=== PATIENT | male | born 1945 | race Caucasian/White ===

== ENCOUNTER → 2016-04-12 | Outpatient (CLI) | payer MEDICARE, OTHER ==
--- NOTE | 2016-04-12 08:17 | CT ---
EXAMINATION TYPE: CT chest w con DATE OF EXAM: 04/12/2016 8:01 AM COMPARISON: NONE HISTORY: abnormal CXR CT DLP: 700.9 mGycm Automated exposure control for dose reduction was used. CONTRAST: CT scan of the chest is performed with IV Contrast, patient injected with 100 mL of Omnipaque 300. FINDINGS: LUNGS: 3 mm pulmonary nodules seen within the superior segment right lower lobe image 34 of 66. Addit ional smaller 4 mm nodule left lower lobe posteriorly image 48 of 66 as well as 3 mm subpleural nodul e same image. No additional nodules seen. Left basilar parenchymal scarring and mild bronchiectasis. The remainder of the lungs are clear. MEDIASTINUM: There are no greater than 1 cm hilar or mediastina l lymph nodes. No pericardial effusion is seen. Thoracic aorta is of normal caliber. The heart is not enlarged. UPPER ABDOMEN: No significant abnormality appreciated. OTHER: No additional significant abnormality is seen. IMPRESSION: 1. Nonspecific pulmonary nodularity. Follow-up study in 6 months. 2. correlate for esophagitis. 3. Left basilar scarring and mild bronchiectasis.
== END | disposition home or self-care (01) ==
LOC: RADCTMAIN 07:14
PROVIDERS: ATTEND Family Medicine
DX: J47.9 Bronchiectasis, uncomplicated (principal); J98.4 Other disorders of lung
CPT/HCPCS: 71260; Q9967

== ENCOUNTER → 2017-03-18 | Outpatient (CLI) | payer MEDICARE, OTHER ==
--- NOTE | 2017-03-18 12:27 | CT ---
EXAMINATION TYPE: CT chest wo con DATE OF EXAM: 03/18/2017 COMPARISON: NONE HISTORY: Patient complains of some difficulty breathing. CT DLP: 1401.8 mGycm, Automated exposure control for dose reduction was used. CONTRAST: None TECHNIQUE: Axial images were obtained at 1 mm thick sections at 10 mm intervals. This will limit po rtions of the examination which may not be visualized within the owson-[id number]-dbhr. Images were obtained in the prone and supine views. FINDINGS: Portion of the thyroid visualized is normal. No suspicious lung nodules or focal infiltrat es are present. Some bronchiectasis is in the left lower lobe. Some pleural thickening along the major fissure is pre sent at the right lung base. Series 5 image 23. There is a large lymph node in the pretracheal space with a large fatty hilum. This is a transverse dimension 1.4 cm which is enlarged by CT criteria. The ascending aorta diameter at the level of the m ain pulmonary artery is 4.4 cm. The main pulmonary artery diameter at the bifurcation is 3.3 cm. Cor onary artery calcification is present. Limited CT sections are obtained through the upper abdomen. Abdomen is essentially unremarkable. IMPRESSIONS: 1. Enlarged lymph node with a large fatty hilum within the pretracheal space measuring 1.4 cm. 2. Bronchiectasis medial left lower lobe. 3. Ascending thoracic aortic aneurysm.
== END | disposition home or self-care (01) ==
LOC: RADCTMAIN 08:34
PROVIDERS: ATTEND Internal Medicine Critical Care Medicine
DX: J47.9 Bronchiectasis, uncomplicated (principal); R59.0 Localized enlarged lymph nodes; I71.2 Thoracic aortic aneurysm, without rupture
CPT/HCPCS: 71250

== ENCOUNTER 2018-07-05 12:07 | Emergency (ER) | payer MEDICARE, OTHER ==
[2018-07-05] MEDS ORDERED: SODIUM CHLORIDE 0.9% 500 ML 500 ML IV STA (13:00)
[2018-07-05 13:34] LABS: Basophils # (A) 0.1 k/uL (0-0.2); Basophils % (A) 1 %; Eosinophils # (A) 0.1 k/uL (0-0.7); Eosinophils % (A) 1 %; HGB 14.7 gm/dL (13.0-17.5); Lymphocytes # (A) 1.1 k/uL (1.0-4.8); Lymphocytes % (A) 13 %; MCH 30.1 pg (25.0-35.0); MCHC 33.3 g/dL (31.0-37.0); MCV 90.5 fL (80.0-100.0); Mean Platelet Volume 7.8; Monocytes # (A) 0.5 k/uL (0-1.0); Monocytes % (A) 5 %; Neutrophils # (A) 6.9 k/uL (1.3-7.7); Neutrophils % (A) 78 %; Platelet Count 257 k/uL (150-450); RBC 4.86 m/uL (4.30-5.90); RDW 13.8 % (11.5-15.5); WBC 8.9 k/uL (3.8-10.6)
[2018-07-05 13:44] LABS: Albumin 4.2 g/dL (3.5-5.0); Calcium 9.9 mg/dL (8.4-10.2); Potassium 4.3 mmol/L (3.5-5.1); Total Bilirubin 0.8 mg/dL (0.2-1.3); Total Protein 7.3 g/dL (6.3-8.2)
[2018-07-05 13:46] LABS: INR 0.9 (<1.2); Partial Thromboplastin Time 22.4 sec (22.0-30.0); Prothrombin Time 10.1 sec (9.0-12.0)
--- NOTE | 2018-07-05 14:14 | US ---
EXAMINATION TYPE: US venous doppler duplex LE LT DATE OF EXAM: 07/05/2018 2:08 PM COMPARISON: NONE CLINICAL HISTORY: Pain. Pain and redness left leg SIDE PERFORMED: Left TECHNIQUE: The lower extremity deep venous system is examined utilizing real time linear array sonog dimas with graded compression, doppler sonography and color-flow sonography. VESSELS IMAGED: External Iliac Vein (EIV) Common Femoral Vein Deep Femoral Vein Femoral Vein Popliteal Vein Small Saphenous Vein * Proximal Calf Veins (* superficial vessels) Left Leg: Negative for DVT Within the left groin, there is a probable lymph node visualized measuring 2.6 x 0.9 x 1.8 cm IMPRESSION: No evidence of deep venous thrombosis in the left leg.
--- NOTE | 2018-07-05 15:06 | ED ---
General Adult HPI - General Chief complaint: Extremity Problem,Nontraumatic Stated complaint: lt leg swelling Time Seen by Provider: 07/05/18 12:25 Source: patient, RN notes reviewed, old records reviewed Mode of arrival: wheelchair Limitations: physical limitation - History of Present Illness Initial comments: 73-year-old male patient with past medical history hypertension, hyperlipidemia presents to ED with 2 days of left lower extremity swelling and erythema. Patient is not diabetic. Patient reports that he did have a mild fever on Friday which resolved. Patient denies any other complaints. Patient denies any cough, chest pain, shortness of breath, abdominal pain, nausea vomiting and diarrhea. Systemic: Pt denies fatigue, myalgia, fever/chills, rash. Pt denies weakness, night sweats, weight loss. Neuro: Pt denies headache, visual disturbances, syncope or pre-syncope. HEENT: Pt denies ocular discharge or irritation, otalgia, rhinorrhea, pharyngitis or notable lymphadenopathy. Cardiopulmonary: Pt denies chest pain, SOB, heart palpitations, dyspnea on exertion. Abdominal/GI: Pt denies abdominal pain, n/v/d. : Pt denies dysuria, burning w/ urination, frequency/urgency. Denies new onset urinary or bowel incontinence. MSK: Pt denies myalgia, loss of strength or function in extremities. Neuro: Pt denies new onset weakness, paresthesias. - Related Data Previous Rx's Medication Instructions Recorded Sulfamethox-Tmp 800-160Mg [Bactrim 1 tab PO Q12HR #20 tab 07/05/18 DS 800-160 mg] Allergies Allergy/AdvReac Type Severity Reaction Status Date / Time No Known Allergies Allergy Verified 01/12/14 20:23 Review of Systems ROS Statement: Those systems with pertinent positive or pertinent negative responses have been documented in the HPI. ROS Other: All systems not noted in ROS Statement are negative. Past Medical History Past Medical History: Hyperlipidemia History of Any Multi-Drug Resistant Organisms: None Reported Additional Past Surgical History / Comment(s): hemorrhoidectomy Past Psychological History: No Psychological Hx Reported Smoking Status: Former smoker Past Alcohol Use History: None Reported Past Drug Use History: None Reported General Exam - General Exam Comments Initial Comments: Constitutional: NAD, AOX3, Pt has pleasant affect. HEENT: NC/AT, trachea midline, neck supple, no lymphadenopathy. Posterior pharynx non erythematous, without exudates. External ears appear normal, without discharge. Mucous membranes moist. Eyes PERRLA, EOM intact. There is no scleral icterus. No pallor noted. Cardiopulmonary: RRR, no murmurs, rubs or gallops, no JVD noted. Lungs CTAB in anterior and posterior loja. No peripheral edema. Abdominal exam: Abdomen soft and non-distended. Abdomen non-tender to palpation in all 4 quadrants. Bowel sounds active in LLQ. No hepatosplenomegaly. No ecchymosis Neuro: CN II-XII grossly intact. No nuchal rigidity. MSK: Cellulitic changes in left lower extremity noted. Mild erythema on anterior and posterior aspect of left lower extremity. Posterior left lower extremity mildly tender to palpation. RLE nontender to palpation. Homans sign negative bilaterally. Posterior tibialis and radial pulse +2 bilaterally. Sensation intact in upper and lower extremities. Full active ROM in upper and lower extremities, 5/5 stregnth. Limitations: physical limitation Course Vital Signs 07/05/18 12:19 Temperature 98.9 F Pulse Rate 81 Respiratory 18 Rate Blood Pressure 114/68 O2 Sat by Pulse 96 Oximetry Medical Decision Making - Medical Decision Making 73-year-old male patient with past medical history hypertension, hyperlipidemia presents to ED with 2 days of left lower extremity swelling and erythema. Patient is not diabetic. Patient reports that he did have a mild fever on Friday which resolved. Patient denies any other complaints. Patient denies any cough, chest pain, shortness of breath, abdominal pain, nausea vomiting and diarrhea. Pt VSS, afebrile. Physical exam displayed: Cellulitic changes in left lower extremity noted. Mild erythema on anterior and posterior aspect of left lower extremity. Posterior left lower extremity mildly tender to palpation. RLE nontender to palpation. Homans sign negative bilaterally. Posterior tibialis and radial pulse +2 bilaterally. Laboratory investigations revealed non-impressive CBC, CMP, coagulation studies. Lactic acid within normal limits. The flexion and ultrasound revealed no evidence for deep venous thrombosis. Lymph node with in left groin. Patient diagnosed with cellulitis. Patient administered 1 g Rocephin ED. Patient discharged with Bactrim. Patient discharged with close outpatient follow-up with his primary care provider tomorrow. Pt will return to ER if condition worsens in anyway. Case discussed and seen by Dr Melchor. - Lab Data Result diagrams: 07/05/18 13:18 07/05/18 13:18 Lab Results 07/05/18 07/05/18 07/05/18 Range/Units 13:18 13:18 13:18 WBC 8.9 (3.8-10.6) k/uL RBC 4.86 (4.30-5.90) m/uL Hgb 14.7 (13.0-17.5) gm/dL Hct 44.0 (39.0-53.0) % MCV 90.5 (80.0-100.0) fL MCH 30.1 (25.0-35.0) pg MCHC 33.3 (31.0-37.0) g/dL RDW 13.8 (11.5-15.5) % Plt Count 257 (150-450) k/uL Neutrophils % 78 % Lymphocytes % 13 % Monocytes % 5 % Eosinophils % 1 % Basophils % 1 % Neutrophils # 6.9 (1.3-7.7) k/uL Lymphocytes # 1.1 (1.0-4.8) k/uL Monocytes # 0.5 (0-1.0) k/uL Eosinophils # 0.1 (0-0.7) k/uL Basophils # 0.1 (0-0.2) k/uL PT (9.0-12.0) sec INR (<1.2) APTT (22.0-30.0) sec Sodium 140 (137-145) mmol/L Potassium 4.3 (3.5-5.1) mmol/L Chloride 105 (98-107) mmol/L Carbon Dioxide 24 (22-30) mmol/L Anion Gap 11 mmol/L BUN 18 (9-20) mg/dL Creatinine 0.99 (0.66-1.25) mg/dL Est GFR (CKD-EPI)AfAm 86 (>60 ml/min/1.73 sqM) Est GFR (CKD-EPI)NonAf 75 (>60 ml/min/1.73 sqM) Glucose 116 H (74-99) mg/dL Plasma Lactic Acid Jace 1.6 (0.7-2.0) mmol/L Calcium 9.9 (8.4-10.2) mg/dL Total Bilirubin 0.8 (0.2-1.3) mg/dL AST 24 (17-59) U/L ALT 38 (21-72) U/L Alkaline Phosphatase 77 (38-126) U/L Total Protein 7.3 (6.3-8.2) g/dL Albumin 4.2 (3.5-5.0) g/dL 07/05/18 Range/Units 13:18 WBC (3.8-10.6) k/uL RBC (4.30-5.90) m/uL Hgb (13.0-17.5) gm/dL Hct (39.0-53.0) % MCV (80.0-100.0) fL MCH (25.0-35.0) pg MCHC (31.0-37.0) g/dL RDW (11.5-15.5) % Plt Count (150-450) k/uL Neutrophils % % Lymphocytes % % Monocytes % % Eosinophils % % Basophils % % Neutrophils # (1.3-7.7) k/uL Lymphocytes # (1.0-4.8) k/uL Monocytes # (0-1.0) k/uL Eosinophils # (0-0.7) k/uL Basophils # (0-0.2) k/uL PT 10.1 (9.0-12.0) sec INR 0.9 (<1.2) APTT 22.4 (22.0-30.0) sec Sodium (137-145) mmol/L Potassium (3.5-5.1) mmol/L Chloride (98-107) mmol/L Carbon Dioxide (22-30) mmol/L Anion Gap mmol/L BUN (9-20) mg/dL Creatinine (0.66-1.25) mg/dL Est GFR (CKD-EPI)AfAm (>60 ml/min/1.73 sqM) Est GFR (CKD-EPI)NonAf (>60 ml/min/1.73 sqM) Glucose (74-99) mg/dL Plasma Lactic Acid Jace (0.7-2.0) mmol/L Calcium (8.4-10.2) mg/dL Total Bilirubin (0.2-1.3) mg/dL AST (17-59) U/L ALT (21-72) U/L Alkaline Phosphatase (38-126) U/L Total Protein (6.3-8.2) g/dL Albumin (3.5-5.0) g/dL Disposition Clinical Impression: Cellulitis Disposition: HOME SELF-CARE Condition: Stable Instructions (If sedation given, give patient instructions): Cellulitis (ED) Additional Instructions: Patient to adhere to previously discussed treatment plan and will take medication(s) as directed. Patient to follow up with PCP in 1-2 days. Patient to return to ED if symptoms do not improve. Please follow-up with primary care provider tomorrow. Please return to ER if conditions do not improve or worsen. Prescriptions: Sulfamethox-Tmp 800-160Mg [Bactrim DS 800-160 mg] 1 tab PO Q12HR #20 tab Is patient prescribed a controlled substance at d/c from ED?: No Referrals: Jovanny Lucas MD [Primary Care Provider] - 1-2 days
[2018-07-05 15:21] LABS: Appearance,Urine Clear (Clear); Bilirubin,Urine Negative (Negative); Blood,Urine Negative (Negative); Color,Urine Yellow; Glucose,Urine (UA) Negative (Negative); Ketones,Urine Negative (Negative); Leukocyte Esterase,Urine Negative (Negative); Nitrite,Urine Negative (Negative); PH, Urine 5.5 (5.0-8.0); Protein,Urine Trace (Negative); Specific Gravity,Urine 1.025 (1.001-1.035)
[2018-07-05 16:03] VITALS: BP 139/73; PULSE 75; RESP 16; TEMP 98.1
== END 2018-07-05 16:02 | disposition home or self-care (01) ==
LOC: EC 12:07
DX: L03.116 Cellulitis of left lower limb (principal); Z87.891 Personal history of nicotine dependence
CPT/HCPCS: 36415; 80053; 83605; 85025; 85610; 85730; 81003; 93971; 99284; 96365; 96361; J0696

== ENCOUNTER → 2018-09-23 | Outpatient (CLI) | payer MEDICARE, OTHER ==
--- NOTE | 2018-09-23 18:35 | CONS ---
CONSULTATION DATE OF SERVICE: 09/23/2018 This patient is a 73-year-old gentleman who has been evaluated in Sleep Center for possible obstructive sleep apnea-hypopnea syndrome. HISTORY OF PRESENT ILLNESS/SLEEP-WAKE EVALUATION: Patient's usual sleep schedule is from around 11:30 p.m. until around 7 or 8 a.m. Usually no problems with falling asleep. No TV in bedroom. He sleeps on the side position with his . He has loud snoring and witnessed episodes by her of stopped breathing during sleep. He wakes up from sleep 2 times with nocturia and dry mouth, episodes of sweating. During the day he has problems with memory and irritability. [place] Sleepiness Scale is 7. He usually does not take any naps during the day. No history of hypnagogic hallucinations, sleep paralysis or cataplexy. PAST MEDICAL HISTORY: 1. Acid reflux. 2. Hyperlipidemia. 3. Possible BPH. 4. History of wheezing. Evaluation by pulmonary function test, according to the patient, was borderline, without significant changes with bronchodilators. 5. Status post fracture of left foot. 6. Trauma to the left leg. PAST SURGICAL HISTORY: Bilateral cataract surgery. MEDICATIONS: 1. Atorvastatin. 2. Fenofibrate. 3. Famotidine. 4. Trospium. 5. Tolterodine. 6. Montelukast. 7. Vitamin D, C and fish oil supplement. SOCIAL HISTORY: Negative for smoking. Alcohol consumption occasional. FAMILY HISTORY: Unknown, as the patient was adopted. REVIEW OF SYSTEMS: Multiple awakenings from sleep, snoring. PHYSICAL EXAMINATION: GENERAL: A pleasant gentleman without distress. VITAL SIGNS: BP 130/71, HR 59, RR 16, height 6 feet 4 inches, weight 289 pounds, body mass index 35.1, temperature 98.3, oxygen saturation at room air 96%. HEENT: PERRLA, EOMI. Evaluation of oropharynx showed tongue protrudes midline. Low position of soft palate. Mallampati III. Short distance between soft palate and posterior pharyngeal wall. Restriction of nasal breathing on the left side. NECK: Supple. No JVD. Thyroid is not palpable. Wide neck; 17-1/2 inches in circumference. LUNGS: Clear to percussion and to auscultation. Good air exchange. No wheezing or rhonchi. HEART: S1, S2 regular. No murmurs, gallops or rubs. ABDOMEN: Slightly obese. EXTREMITIES: Very minimal, up to 1+ ankle edema. FARM FIELD MANAGER: Awake, alert, and oriented X3. Cranial nerves 2 to 7 intact. There is no fasciculation or atrophy. noted. No focal deficits observed. IMPRESSION: 1. Loud snoring, awakenings from sleep with dry mouth, restriction of nasal breathing -- patient sleeps sometimes with open mouth -- wide neck, witnessed episodes of stopped breathing during sleep; obstructive sleep apnea-hypopnea syndrome. 2. Mild obesity; body mass index 35.1. 3. Gastroesophageal reflux disease, acid reflux. 4. Hyperlipidemia. 5. History of benign prostatic hypertrophy. 6. Status post bilateral cataract surgery. 7. Status post fracture of left foot and multiple damage to left leg in the past. PLAN: 1. Polysomnography for evaluation of patient's breathing during sleep. 2. CPAP/BiPAP titration if sleep study confirms obstructive sleep apnea-hypopnea syndrome. 3. Preferable position during sleep on the side. 4. No driving if patient feels any sleepiness. 5. I will see patient for follow up visit to explain results of testing and following plan. Thank you very much for referring this patient for consultation. Sincerely, Jacek Street MD, PhD, FAASM Diplomat of [employer] Ring Maker of [facility] [place] MMASPENL / DIONICIO: [id number] /
== END | disposition home or self-care (01) ==
LOC: SLEEP 13:55
PROVIDERS: ATTEND Internal Medicine
DX: G47.33 Obstructive sleep apnea (adult) (pediatric) (principal); E66.9 Obesity, unspecified; K21.9 Gastro-esophageal reflux disease without esophagitis; E78.5 Hyperlipidemia, unspecified; Z68.35 Body mass index [BMI] 35.0-35.9, adult; Z87.81 Personal history of (healed) traumatic fracture; Z87.448 Personal history of other diseases of urinary system; Z98.42 Cataract extraction status, left eye; Z98.41 Cataract extraction status, right eye; Z79.899 Other long term (current) drug therapy
CPT/HCPCS: 99211

== ENCOUNTER → 2018-10-22 | Outpatient (CLI) | payer OTHER ==
--- NOTE | 2018-10-22 14:27 | SFUN ---
SLEEP CENTER FOLLOW UP NOTE DATE OF SERVICE: 10/22/2018 A 73-year-old gentleman who has been followed in the Sleep Center to discuss results of full sleep study and following plan. During the night he continued to wake up several times with nocturia. I discussed results of sleep study with patient in detail. Sleep study showed mild obstructive sleep apnea-hypopnea syndrome with apnea-hypopnea index 11.3, and REM sleep 14.5 with oxygen desaturation to 84.6% heart rate in the range between 42 and 62. ENG showed 70.1 periodic limb movements per hour with 4.2 microarousals per hour. [place] Sleepiness Scale today is 7. PRESENT MEDICATIONS: Atorvastatin, fenofibrate, famotidine, , tolterodine, Montelukast, Vitamin D & C, fish oil. PHYSICAL EXAM: Patient in no distress, BP 136/84, HR 64, RR 16, height 6, 4, weight 289, body mass index 35, oxygen saturation at room air 95%. OROPHARYNX: Low position of soft palate. Mallampati 3. ABDOMEN: Slightly obese. Neck Supple, no JVD. Thyroid is not palpable. LUNGS Clear to percussion and to auscultation. Good air exchange. No wheezing or rhonchi. HEART S1, S2 regular. No murmurs, gallops, or rubs. EXTREMITIES No clubbing or cyanosis. ROUTE SALES DRIVER Awake, alert, and oriented X3. Cranial nerves 2 to 7 intact. There is no fasciculation or atrophy. noted. No focal deficits observed. IMPRESSION: 1. Mild obstructive sleep apnea-hypopnea syndrome. The patient has several awakenings from sleep with nocturia. 2. Severe periodic limb movements have been documented, but with mild amount of micro arousals. 3. Mild obesity. 4. . 5. Hyperlipidemia. 6. History of benign prostatic hypertrophy. 7. Status post bilateral cataract surgery. 8. Status post fracture of left foot and multiple limb damage to left foot and left leg in the past. PLAN: 1. CPAP titration for correction of patient respiratory abnormalities during sleep. 2. Sleep hygiene with regular time in bed for at least 8 hours. 3. I discussed with the patient possibility for treatment of periodic limb movements. I will recheck his situation with his legs after CPAP titration will be done. Amount of micro arousals related to leg movements very minimal, but leg movement significant. The patient does not have any complaints on leg movements at night. 4. No driving if feeling sleepiness. 5. Losing weight. Thank you very much for allowing me to participate in management of your patient. Sincerely, Jacek Street MD, PhD, FAASM Diplomat of [employer] Portable Pinch Riveter [facility] [place] MMODL / IJN: [id number] /
== END | disposition home or self-care (01) ==
LOC: SLEEP 13:09
PROVIDERS: ATTEND Internal Medicine
DX: G47.33 Obstructive sleep apnea (adult) (pediatric) (principal); E78.5 Hyperlipidemia, unspecified; E66.9 Obesity, unspecified; Z87.438 Personal history of other diseases of male genital organs; Z98.42 Cataract extraction status, left eye; Z98.41 Cataract extraction status, right eye; Z87.81 Personal history of (healed) traumatic fracture; Z79.899 Other long term (current) drug therapy

== ENCOUNTER → 2019-01-07 | Outpatient (CLI) | payer OTHER ==
--- NOTE | 2019-01-07 14:22 | PN ---
PROGRESS NOTE DATE OF SERVICE: 01/07/2019 A 73-year-old gentleman who has been followed in the Sleep Center for treatment of obstructive sleep apnea-hypopnea syndrome and periodic limb movements. Recently patient had sleep study which showed obstructive sleep apnea with apnea- hypopnea index 11.3. After the patient had CPAP titration, his respiration normalized. Subsequently, he was started on treatment with CPAP and today is his first visit after he received his CPAP unit. He is able to use CPAP equipment without significant problems with a full-face mask. According to his , he does not snore now after started to use his CPAP. He decreased the amount of episodes of nocturia from around 3 times down to 1 to 0 time per night. I checked his CPAP unit. CPAP pressure is 9 cm of water. Usage is every night for more than 4 hours with average usage 7.5 hours per night, mask fitting 99%. Apnea-hypopnea index 3.0, which is in normal range. Percent of periodic breathing according to the machine 4% which is acceptable. [place] Sleepiness Scale still slightly increased to 11. MEDICATIONS: Atorvastatin, fenofibrate, famotidine, fluoride, vitamin supplements. PHYSICAL EXAM: Patient in no distress. BP 134/73, HR 58, RR 16, weight 288, temp 97.6, oxygen saturation at room air 96%. OROPHARYNX: Low position of soft palate, Mallampati III. ABDOMEN: Slightly obese. NECK: Supple, no JVD. Thyroid is not palpable. LUNGS: Clear to percussion and to auscultation. Good air exchange. No wheezing or rhonchi. HEART: S1, S2 regular. No murmurs, gallops, or rubs. EXTREMITIES: No clubbing or cyanosis. PRESS TOOL MAKER: Awake, alert, and oriented X3. Cranial nerves 2 to 7 intact. There is no fasciculation or atrophy. noted. No focal deficits observed. IMPRESSION: 1. Obstructive sleep apnea-hypopnea syndrome. Patient demonstrated 100% compliance with treatment, benefitting from treatment. 2. Patient still has mild symptoms of excessive daytime sleepiness. [place] Sleepiness Scale 11. Diagnostic sleep study and titration of sleep study showed severe periodic limb movements. 3. Mild obesity. 4. Hyperlipidemia. 5. History of benign prostatic hypertrophy. 6. History of a left foot fracture. 7. History of significant arthritis of the feet. 8. History of tear of meniscus of left foot. 9. Status post bilateral cataract surgery. PLAN: 1. Patient will continue to use CPAP equipment every night for the whole night. 2. We will try Mirapex 0.125 mg 1 to 2 tablets at bedtime for periodic limb movements. 3. Losing weight. 4. Sleep hygiene with regular time in bed for 7.5 hours. 5. No driving if feeling sleepiness. Thank you very much for allowing me to participate in the management of your patient. Sincerely, Jacek Street MD, PhD, FAASM Diplomat of [employer] Food Analyst of [facility] [place] MMODL / IJN: [id number] /
== END ==
LOC: SLEEP 11:18
PROVIDERS: ATTEND Internal Medicine
DX: G47.33 Obstructive sleep apnea (adult) (pediatric) (principal); E66.9 Obesity, unspecified; E78.5 Hyperlipidemia, unspecified; N40.0 Benign prostatic hyperplasia without lower urinary tract symptoms; Z87.81 Personal history of (healed) traumatic fracture; Z87.39 Personal history of other diseases of the musculoskeletal system and connective tissue; Z98.42 Cataract extraction status, left eye; Z98.41 Cataract extraction status, right eye; Z99.89 Dependence on other enabling machines and devices; Z79.899 Other long term (current) drug therapy

== ENCOUNTER → 2019-03-22 | Outpatient (CLI) | payer MEDICARE, OTHER ==
--- NOTE | 2019-03-22 07:42 | US ---
EXAMINATION TYPE: US duplex aorta DATE OF EXAM: 03/22/2019 COMPARISON: NONE CLINICAL HISTORY: Z13.6 Screening for AAA. Screening EXAM MEASUREMENTS: Abdominal Aorta: Proximal: 2.6 x 2.4cm Mid: 3.0 x 2.3cm Distal: 3.3 x 2.8cm Bifurcation: RT: 1.4 x 1.3cm LT: 1.4 x 1.1cm Mild AAA noted distally. IMPRESSION: Abdominal aortic aneurysm of the distal abdominal aorta measuring 3.3 cm. Remainder of th e abdominal aorta demonstrates no additional area of aneurysmal dilatation.
== END | disposition home or self-care (01) ==
LOC: RADUSWWP 07:05
PROVIDERS: ATTEND Family Medicine
DX: I71.4 Abdominal aortic aneurysm, without rupture (principal)
CPT/HCPCS: 93979

== ENCOUNTER 2019-04-05 08:02 | Day surgery (SDC) | payer MEDICARE, OTHER ==
[2019-04-01 11:14] VITALS: BMI 33.2
[~2019-04-05 08:02] MED LIST: LACTATED RINGERS 1,000 ML IV SCH
[2019-04-05 08:32] VITALS: TEMP 97.8
[2019-04-05] MEDS ORDERED: LIDOCAINE 1% 20 ML VIAL (10MG/ML) FOR IV START INTRADERMA ONE (08:42)
[2019-04-05] MEDS ORDERED: MIDAZOLAM 2 MG/2 ML VIAL ONE (09:04)
[2019-04-05] MEDS ORDERED: fentaNYL (PF) 50 MCG/ML 2 ML AMP ONE (09:04)
[2019-04-05] MEDS ORDERED: PROPOFOL 10 MG/ML 20 ML VIAL IV ONE (09:04)
--- NOTE | 2019-04-05 09:29 | P.PCN ---
Date of Procedure: 04/05/19 Description of Procedure: BRIEF HISTORY: Patient is a 73-year-old male presenting for outpatient es ophagogastroduodenoscopy for evaluation of GERD. Patient takes Pepcid for symptoms of reflux. Also reports a tic on the back of his throat. No prior EGD reported. PROCEDURE PERFORMED: Esophagogastroduodenoscopy with biopsy. PREOPERATIVE DIAGNOSIS: GERD. ESTIMATED BLOOD LOSS: Minimal. IV sedation per anesthesia. PROCEDURE: After informed consent was obtained, the patient was brought into the endoscopy unit. IV sedation was administered by Anesthesia under continuous monitoring. Initially the Olympus GIF-190 video endoscope was inserted into the mouth. Esophagus intubated without any difficulty. It was gradually advanced into the stomach and duodenum and carefully examined. The bulb and the second part of the duodenum appeared normal, with biopsies taken. The scope at this time was withdrawn to the stomach, adequately insufflated with air, and upon careful examination, mucosa of the antrum, body, cardia and the fundus appeared normal, except for some mild scattered erythema in the antrum and body suggestive of mild gastritis with biopsies of the antrum and body taken. The scope was then withdrawn into the esophagus. The GE junction was located at 49 cm from the incisors and appeared normal with biopsies taken to rule out reflux esophagitis. The esophagus appeared normal. There were no erosions or ulcerations seen and the patient tolerated the procedure well. IMPRESSION: 1. Mild Gastritis antrum and body, biopsied. 2. Biopsies of the duodenum and GE junction.. RECOMMENDATIONS: The findings of this examination were discussed with the patient and his . Okay to resume diet. Okay to resume medications. Await pathology from biopsies.
[2019-04-05 09:47] VITALS: BP 115/72; PULSE 54; RESP 20
== END 2019-04-05 10:16 | disposition home or self-care (01) ==
LOC: ORWHC2ENDO 08:02
PROVIDERS: ATTEND Internal Medicine
DX: K29.50 Unspecified chronic gastritis without bleeding (principal); K21.9 Gastro-esophageal reflux disease without esophagitis; E78.5 Hyperlipidemia, unspecified; J45.909 Unspecified asthma, uncomplicated; G47.33 Obstructive sleep apnea (adult) (pediatric); Z87.891 Personal history of nicotine dependence; Z99.89 Dependence on other enabling machines and devices; Z79.899 Other long term (current) drug therapy; Z98.890 Other specified postprocedural states; Z79.891 Long term (current) use of opiate analgesic; Z98.52 Vasectomy status; Z98.49 Cataract extraction status, unspecified eye
CPT/HCPCS: 88305; 43239; J2250; J3010; J2704

== ENCOUNTER 2019-05-10 18:03 | Inpatient (IN) | payer MEDICARE, OTHER ==
[2019-05-10] MEDS ORDERED: VANCOMYCIN IV PER PHARMACY 1 EACH MISC MISCELLANE PRN (18:29)
[2019-05-10] MEDS ORDERED: ACETAMINOPHEN TAB 500 MG TAB PO STA (18:29)
[2019-05-10] MEDS: SODIUM CHLORIDE 0.9% 500 ML 500 ML IV SCH ×3 (18:36→18:56)
[2019-05-10] MEDS ORDERED: VANCOMYCIN 2,250 MG in SODIUM CHLORIDE 0.9% 500 ML 500 ML IVPB STA (18:36)
--- NOTE | 2019-05-10 18:46 | ED ---
General Adult HPI - General Chief complaint: Weakness Stated complaint: weakness Time Seen by Provider: 05/10/19 18:23 Source: patient, EMS, RN notes reviewed, old records reviewed Mode of arrival: EMS Limitations: no limitations - History of Present Illness Initial comments: 73-year-old male presenting for evaluation generalized weakness and chills. P atient states that yesterday afternoon he developed chills and Dm's. He denies significant cough or URI symptoms. Denies abdominal pain nausea or vomiting. He has a chronic left lower extremity erythema which she states is been present for at least 6 months. He has been diagnosed with cellulitis in this leg in the past. He denies dysuria or hematuria. His states he's had a mild cough. He he has been eating and drinking. - Related Data Home Medications Medication Instructions Recorded Confirmed Cholecalciferol [Vitamin D3 (25 1,000 unit PO DAILY 04/01/19 04/05/19 Mcg = 1000 Iu)] Famotidine [Pepcid] 40 mg PO DAILY 04/01/19 04/05/19 Montelukast Sodium [Singulair] 10 mg PO HS 04/01/19 04/05/19 Naproxen 500 mg PO BID PRN 04/01/19 04/05/19 [place]-3 Fatty Acids/Fish Oil [Fish 1 each PO DAILY 04/01/19 04/05/19 Oil 1,000 mg Softgel] Tolterodine [Detrol] 2 mg PO DAILY 04/01/19 04/05/19 Trospium Chloride [Sanctura] 20 mg PO DAILY 04/01/19 04/05/19 Allergies Allergy/AdvReac Type Severity Reaction Status Date / Time No Known Allergies Allergy Verified 04/05/19 08:23 Review of Systems ROS Statement: Those systems with pertinent positive or pertinent negative responses have been documented in the HPI. ROS Other: All systems not noted in ROS Statement are negative. Past Medical History Past Medical History: Hyperlipidemia, Prostate Disorder History of Any Multi-Drug Resistant Organisms: None Reported Additional Past Surgical History / Comment(s): hemorrhoidectomy, cataracts removed Past Psychological History: No Psychological Hx Reported Smoking Status: Former smoker Past Alcohol Use History: Occasional Past Drug Use History: None Reported General Exam Limitations: no limitations General appearance: alert, in no apparent distress Head exam: Present: atraumatic, normocephalic Eye exam: Present: normal appearance, PERRL ENT exam: Present: normal exam, normal oropharynx Neck exam: Present: normal inspection. Absent: tenderness, meningismus Respiratory exam: Present: normal lung sounds bilaterally, decreased breath sounds. Absent: respiratory distress, wheezes Cardiovascular Exam: Present: regular rate, normal rhythm GI/Abdominal exam: Present: soft, distended. Absent: tenderness, guarding, rebound Extremities exam: Present: pedal edema, other (Circumferential cellulitis and edema of the left lower extremity just distal to the knee.) Neurological exam: Present: alert, oriented X3, CN II-XII intact. Absent: motor sensory deficit Psychiatric exam: Present: normal affect, normal mood Skin exam: Present: warm, dry, erythema (Left lower extremity, warmth, erythema, swelling) Course Vital Signs 05/10/19 05/10/19 05/10/19 18:04 18:19 19:36 Temperature 101.4 F H 99.7 F H Pulse Rate 60 73 68 Respiratory 16 18 18 Rate Blood Pressure 84/38 103/55 101/51 O2 Sat by Pulse 93 L 93 L 92 L Oximetry EKG Findings - EKG Comments: EKG Findings:: EKG: Sinus rhythm with first-degree AV block, rate of 73, incomplete right bundle-branch block, TN interval 226, QRS duration 100, QTC 438, no ST segment elevation Procedures - Sepsis Sepsis Focused Exam #1 Time Sepsis Criteria Met: 18:07 Sepsis Focused Exam Date: 05/10/19 Sepsis Focused Exam Time: 20:19 Sepsis Focused Exam Complete: Yes Vital Signs & RN Notes Reviewed: Yes Capillary Refill: < 2 Seconds: Fingers, Toes Peripheral Pulses: Normal: Radial (R), Radial (L) Skin Color: Normal for Patient Respiratory Exam: normal lung sounds Cardiovascular Exam: regular rate, normal rhythm Medical Decision Making - Medical Decision Making 73-year-old male presenting with fever weakness. Only focal source of infection is the left lower extremity cellulitis which is erythematous, warm to the touch. Patient is febrile with leukocytosis at 13.1. He has mild lactic acidosis of 2.8. Chest x-ray is negative for focal pneumonia, he's influenza negative. Urinalysis is pending, this may be a potential source of infection but he has been unable to urinate while in the emergency department. He is initiated on broad-spectrum antibiotics including ceftriaxone and vancomycin awaiting culture results. He will be admitted to internal medicine for close monitoring, IV antibiotics treatment of left lower extremity cellulitis with se psis. - Lab Data Result diagrams: 05/10/19 18:30 05/10/19 18:30 Lab Results 05/10/19 05/10/19 05/10/19 Range/Units 18:30 18:30 18:30 WBC 13.1 H (3.8-10.6) k/uL RBC 4.32 (4.30-5.90) m/uL Hgb 12.9 L (13.0-17.5) gm/dL Hct 39.7 (39.0-53.0) % MCV 91.9 (80.0-100.0) fL MCH 29.8 (25.0-35.0) pg MCHC 32.4 (31.0-37.0) g/dL RDW 13.5 (11.5-15.5) % Plt Count 125 L (150-450) k/uL Neutrophils % 89 % Lymphocytes % 6 % Monocytes % 2 % Eosinophils % 2 % Basophils % 0 % Neutrophils # 11.7 H (1.3-7.7) k/uL Lymphocytes # 0.8 L (1.0-4.8) k/uL Monocytes # 0.3 (0-1.0) k/uL Eosinophils # 0.3 (0-0.7) k/uL Basophils # 0.1 (0-0.2) k/uL PT 13.4 H (9.0-12.0) sec INR 1.3 H (<1.2) APTT 22.4 (22.0-30.0) sec Sodium 136 L (137-145) mmol/L Potassium 4.1 (3.5-5.1) mmol/L Chloride 105 (98-107) mmol/L Carbon Dioxide 21 L (22-30) mmol/L Anion Gap 10 mmol/L BUN 31 H (9-20) mg/dL Creatinine 1.15 (0.66-1.25) mg/dL Est GFR (CKD-EPI)AfAm 73 (>60 ml/min/1.73 sqM) Est GFR (CKD-EPI)NonAf 63 (>60 ml/min/1.73 sqM) Glucose 112 H (74-99) mg/dL Plasma Lactic Acid Jace (0.7-2.0) mmol/L Calcium 8.5 (8.4-10.2) mg/dL Total Bilirubin 1.0 (0.2-1.3) mg/dL AST 33 (17-59) U/L ALT 29 (4-49) U/L Alkaline Phosphatase 46 (38-126) U/L Creatine Kinase 128 (55-170) U/L Total Protein 6.1 L (6.3-8.2) g/dL Albumin 3.3 L (3.5-5.0) g/dL Influenza Type A RNA (Not Detectd) Influenza Type B (PCR) (Not Detectd) 05/10/19 05/10/19 Range/Units 18:30 18:30 WBC (3.8-10.6) k/uL RBC (4.30-5.90) m/uL Hgb (13.0-17.5) gm/dL Hct (39.0-53.0) % MCV (80.0-100.0) fL MCH (25.0-35.0) pg MCHC (31.0-37.0) g/dL RDW (11.5-15.5) % Plt Count (150-450) k/uL Neutrophils % % Lymphocytes % % Monocytes % % Eosinophils % % Basophils % % Neutrophils # (1.3-7.7) k/uL Lymphocytes # (1.0-4.8) k/uL Monocytes # (0-1.0) k/uL Eosinophils # (0-0.7) k/uL Basophils # (0-0.2) k/uL PT (9.0-12.0) sec INR (<1.2) APTT (22.0-30.0) sec Sodium (137-145) mmol/L Potassium (3.5-5.1) mmol/L Chloride (98-107) mmol/L Carbon Dioxide (22-30) mmol/L Anion Gap mmol/L BUN (9-20) mg/dL Creatinine (0.66-1.25) mg/dL Est GFR (CKD-EPI)AfAm (>60 ml/min/1.73 sqM) Est GFR (CKD-EPI)NonAf (>60 ml/min/1.73 sqM) Glucose (74-99) mg/dL Plasma Lactic Acid Jace 2.8 H* (0.7-2.0) mmol/L Calcium (8.4-10.2) mg/dL Total Bilirubin (0.2-1.3) mg/dL AST (17-59) U/L ALT (4-49) U/L Alkaline Phosphatase (38-126) U/L Creatine Kinase (55-170) U/L Total Protein (6.3-8.2) g/dL Albumin (3.5-5.0) g/dL Influenza Type A RNA Not Detected (Not Detectd) Influenza Type B (PCR) Not Detected (Not Detectd) Critical Care Time Critical Care Time: Yes Total Critical Care Time: 35 Disposition Clinical Impression: Sepsis, Cellulitis Disposition: ADMITTED IP TO THIS HOSP Condition: Stable Is patient prescribed a controlled substance at d/c from ED?: No Referrals: Jovanny Lucas MD [Primary Care Provider] - 1-2 days Decision to Admit Reason: Admit from EC
[2019-05-10 18:51] LABS: Basophils # (A) 0.1 k/uL (0-0.2); Basophils % (A) 0 %; Eosinophils # (A) 0.3 k/uL (0-0.7); Eosinophils % (A) 2 %; HCT 39.7 % (39.0-53.0); HGB 12.9 gm/dL (13.0-17.5); Lymphocytes # (A) 0.8 k/uL (1.0-4.8); Lymphocytes % (A) 6 %; MCH 29.8 pg (25.0-35.0); MCHC 32.4 g/dL (31.0-37.0); MCV 91.9 fL (80.0-100.0); Mean Platelet Volume 7.9; Monocytes # (A) 0.3 k/uL (0-1.0); Monocytes % (A) 2 %; Neutrophils # (A) 11.7 k/uL (1.3-7.7); Neutrophils % (A) 89 %; Platelet Count 125 k/uL (150-450); RBC 4.32 m/uL (4.30-5.90); RDW 13.5 % (11.5-15.5); WBC 13.1 k/uL (3.8-10.6)
[2019-05-10 19:00] LABS: Albumin 3.3 g/dL (3.5-5.0); Calcium 8.5 mg/dL (8.4-10.2); Potassium 4.1 mmol/L (3.5-5.1); Total Protein 6.1 g/dL (6.3-8.2)
[2019-05-10 19:33] LABS: INR 1.3 (<1.2); Prothrombin Time 13.4 sec (9.0-12.0)
--- NOTE | 2019-05-10 19:38 | XR ---
EXAMINATION TYPE: XR chest 2V DATE OF EXAM: 05/10/2019 COMPARISON: NONE HISTORY: Cough and congestion TECHNIQUE: 4 views FINDINGS: There is no heart failure nor confluent pneumonic infiltrate. Costophrenic angles are clear . There are no hilar masses. Heart is borderline enlarged. Bony thorax is intact. IMPRESSION: Borderline cardiomegaly. No active cardiopulmonary disease.
[2019-05-10 19:45] LABS: Partial Thromboplastin Time 22.4 sec (22.0-30.0)
[2019-05-10] MEDS ORDERED: SODIUM CHLORIDE 0.9% 1,000 ML IV ONE (20:04)
[2019-05-10] MEDS ORDERED: NALOXONE 0.4 MG/ML 1 ML VIAL IV PRN (20:15)
[2019-05-10] MEDS ORDERED: ACETAMINOPHEN TAB 325 MG TAB PO PRN (20:15)
[2019-05-10] MEDS: SODIUM CHLORIDE 0.9% 1,000 ML IV SCH (21:02)
--- NOTE | 2019-05-10 22:35 | P.HPIM ---
History of Present Illness H&P Date: 05/10/19 Chief Complaint: bilateral leg weakness 73 year old male , with prostate disorder, and normally runs low blood pressure low 100 of systolic blood pressure patient comes in today, as since morning he noticed weakness in bilateral legs. and could not get out of the bed ended up sliding down. then noticed difficulties with walking due to weakness. he also reports chills since yesterday. he denies any other focal neuro deficits. he denies any URI symptoms denies any chest pain or trouble breathing. he denies any headache, nausea vomiting or any GI symptoms. he denies any urinary symptoms. he denies nocturia , hematuria or dysuria. patient denies any recent traveling. or sick contacts. patient reports recent cellulitis of his left leg 3 months ago, and since then his left leg has been red. he denies any pain though. in the ED he was febrile , hypotensive, blood work showed leukocytosis and lactic acidosis . patient admitted to rule out infection and was started on IVF hydration and broad spectrum ABx Review of Systems Pertinent positives as noted in HPI. All other systems were reviewed and are negative Past Medical History Past Medical History: Hyperlipidemia, Prostate Disorder History of Any Multi-Drug Resistant Organisms: None Reported Additional Past Surgical History / Comment(s): hemorrhoidectomy, cataracts removed Past Psychological History: No Psychological Hx Reported Smoking Status: Former smoker Past Alcohol Use History: Occasional Past Drug Use History: None Reported - Past Family History Mother History Unknown: Yes Family Medical History: No Reported History Additional Family Medical History / Comment(s): pt states he was adopted, parents unknown. Medications and Allergies Home Medications Medication Instructions Recorded Confirmed Type Cholecalciferol [Vitamin D3 (25 1,000 unit PO DAILY 04/01/19 05/10/19 History Mcg = 1000 Iu)] Montelukast Sodium [Singulair] 10 mg PO HS 04/01/19 05/10/19 History Naproxen 500 mg PO BID PRN 04/01/19 05/10/19 History [place]-3 Fatty Acids/Fish Oil [Fish 1 cap PO DAILY 04/01/19 05/10/19 History Oil 1,000 mg Softgel] Tolterodine [Detrol] 2 mg PO DAILY 04/01/19 05/10/19 History Trospium Chloride [Sanctura] 20 mg PO BID 04/01/19 05/10/19 History Naproxen Sodium [Aleve] 220 mg PO BID PRN 05/10/19 05/10/19 History Omeprazole [PriLOSEC] 40 mg PO DAILY 05/10/19 05/10/19 History Allergies Allergy/AdvReac Type Severity Reaction Status Date / Time No Known Allergies Allergy Verified 05/10/19 20:47 Physical Exam Vitals: Vital Signs Temp Pulse Resp BP Pulse Ox 05/10/19 20:22 99.7 F H 66 18 90/48 92 L 05/10/19 19:36 99.7 F H 68 18 101/51 92 L 05/10/19 18:19 73 18 103/55 93 L 05/10/19 18:04 101.4 F H 60 16 84/38 93 L Intake and Output 05/10/19 05/10/19 05/10/19 06:59 14:59 22:59 Other: Weight 127.006 kg Constitutional: No acute distress, conversant, pleasant, patient had strong smell of urine, however, he claimed that his pants are dirty and has not been washed for a month now. Eyes: Anicteric sclerae, moist conjunctiva, no lid-lag Pupils equal round reactive to light ENMT: NC/AT Oropharynx clear, no erythema, exudates Neck: Supple, FROM, no masses, or JVD No carotid bruits No thyromegaly Lungs: Clear to auscultation Clear to percussion Normal respiratory effort, no accessory muscle use Cardiovascular: Heart regular in rate and rhythm, No murmurs, gallops, or rubs No peripheral edema Abdominal: Soft Nontender, no guarding, rebound or rigidity Abdomen moving with respiration Normoactive bowel sounds No hepatomegaly, No splenomegaly No palpable mass No abdominal wall hernia noted groin area examined no erythema or drainage Skin: erythema no induration over the left leg , marked with pen to monitor progress, no warmth to the touch , no tenderness , otherwise. Normal temperature, tone, texture, turgor, no ulcers. Extremities: No digital cyanosis No clubbing Pedal pulses intact and symmetrical Radial pulses intact and symmetrical No calf tenderness Psychiatric: Alert and oriented to person, place and time Appropriate affect fair judgement Neuro Muscles Strength 5/5 in all 4 extremities Sensation to light touch grossly present throughout Cranial nerves II-XII grossly intact No focal sensory deficits Lymphatics: no palpable cervical or supraclavicular , or inguinal lymph nodes Results CBC & Chem 7: 05/10/19 18:30 05/10/19 18:30 Labs: Abnormal Lab Results - Last 24 Hours (Table) 05/10/19 05/10/19 05/10/19 Range/Units 18:30 18:30 18:30 WBC 13.1 H (3.8-10.6) k/uL Hgb 12.9 L (13.0-17.5) gm/dL Plt Count 125 L (150-450) k/uL Neutrophils # 11.7 H (1.3-7.7) k/uL Lymphocytes # 0.8 L (1.0-4.8) k/uL PT 13.4 H (9.0-12.0) sec INR 1.3 H (<1.2) Sodium 136 L (137-145) mmol/L Carbon Dioxide 21 L (22-30) mmol/L BUN 31 H (9-20) mg/dL Glucose 112 H (74-99) mg/dL Plasma Lactic Acid Jace (0.7-2.0) mmol/L Total Protein 6.1 L (6.3-8.2) g/dL Albumin 3.3 L (3.5-5.0) g/dL 05/10/19 Range/Units 18:30 WBC (3.8-10.6) k/uL Hgb (13.0-17.5) gm/dL Plt Count (150-450) k/uL Neutrophils # (1.3-7.7) k/uL Lymphocytes # (1.0-4.8) k/uL PT (9.0-12.0) sec INR (<1.2) Sodium (137-145) mmol/L Carbon Dioxide (22-30) mmol/L BUN (9-20) mg/dL Glucose (74-99) mg/dL Plasma Lactic Acid Jace 2.8 H* (0.7-2.0) mmol/L Total Protein (6.3-8.2) g/dL Albumin (3.5-5.0) g/dL Assessment and Plan Assessment: 73 year old male with BPH, comes in due to chills and bilateral leg weakness. admitted due to suspected sepsis of unknown undelrying infection suspected cellulitis vs UTI and hypotension, anticipated length of stay > 2 midnights Plan: sepsis due to suspected underlying cellulitis vs UTI hypotension lactic acidosis plan follow up blood culture follow up UA erythema over left leg marked to monitor progress empiric ABx with vanco symptomatic control IVF hydration follow up LA and labs BPH continue home meds CODE STATUS:full code DVT prophylaxis: heparin sc tid Discussed with: Patient, ER, RN Anticipated length of stay > than [address]: home A total of 60 minutes was spent on the care of this complex patient more than 50% of the time was spent in counseling and care coordination.
[2019-05-11] MEDS: HEPARIN SODIUM,PORCINE 5,000 UNIT/ML 1 ML VIAL SQ SCH ×4 (00:19→23:05)
[2019-05-11 05:36] LABS: Appearance,Urine Cloudy (Clear); Bacteria,Urine Rare /hpf; Bilirubin,Urine Negative (Negative); Blood,Urine Trace (Negative); Color,Urine Yellow; Glucose,Urine (UA) Negative (Negative); Ketones,Urine Negative (Negative); Leukocyte Esterase,Urine Negative (Negative); Mucus,Urine Few /hpf; Nitrite,Urine Negative (Negative); PH, Urine 5.5 (5.0-8.0); Protein,Urine Trace (Negative); RBC,Urine 6 /hpf (0-5); Specific Gravity,Urine 1.028 (1.001-1.035); Squamous Epithelial Cell,Urine 3 /hpf (0-4); Urobilinogen,Urine <2.0 mg/dL (<2.0); WBC,Urine 4 /hpf (0-5)
[2019-05-11 06:51] LABS: Basophils % (A) 0 %; Eosinophils # (A) 0.1 k/uL (0-0.7); Eosinophils % (A) 1 %; HCT 36.3 % (39.0-53.0); HGB 11.7 gm/dL (13.0-17.5); Lymphocytes # (A) 0.9 k/uL (1.0-4.8); Lymphocytes % (A) 9 %; MCH 30.7 pg (25.0-35.0); MCHC 32.3 g/dL (31.0-37.0); MCV 95.1 fL (80.0-100.0); Monocytes # (A) 0.4 k/uL (0-1.0); Monocytes % (A) 4 %; Neutrophils % (A) 84 %; Platelet Count 173 k/uL (150-450); RBC 3.81 m/uL (4.30-5.90); RDW 13.7 % (11.5-15.5); WBC 9.6 k/uL (3.8-10.6)
[2019-05-11 07:11] LABS: Potassium 4.2 mmol/L (3.5-5.1)
[2019-05-11 07:12] LABS: African American GFR (CKD) >90 (>60 ml/min/1.73 sqM); Anion Gap 8 mmol/L; Blood Urea Nitrogen 26 mg/dL (9-20); Calcium 7.8 mg/dL (8.4-10.2); Carbon Dioxide 19 mmol/L (22-30); Chloride 110 mmol/L (98-107); Glucose 92 mg/dL (74-99); Non-African American GFR(CKD) 86 (>60 ml/min/1.73 sqM); Sodium 137 mmol/L (137-145)
[2019-05-11] MEDS: OXYBUTYNIN 10 MG TAB.ER.24 PO SCH (08:00)
[2019-05-11] MEDS: SODIUM CHLORIDE 0.9% 1,000 ML IV SCH ×2 (08:00→11:57)
[2019-05-11] MEDS: PANTOPRAZOLE 40 MG TABLET PO SCH (08:00)
[2019-05-11] MEDS ORDERED: VANCOMYCIN 2,000 MG in SODIUM CHLORIDE 0.9% 500 ML 500 ML IVPB SCH (08:00)
[2019-05-11] MEDS: TROSPIUM CHLORIDE 20 MG TABLET PO SCH ×3 (08:00→21:25)
[2019-05-11] MEDS ORDERED: NAPROXEN 250 MG TAB PO PRN (11:36)
[2019-05-11] MEDS: SODIUM BICARBONATE TAB 650 MG TAB PO SCH ×3 (11:56→20:58)
--- NOTE | 2019-05-11 19:19 | P.PN ---
Progress Note - Text Progress Note Date: 05/11/19 Presenting complaint: Chills History of presenting complaint: This pleasant gentleman admitted with chills, generalized weakness tiredness weakness in the legs. Had a fever on presentation. Had trouble making urine. No obvious respiratory symptoms. Franklin to be admitted with acute while syndrome and/or acute UTI. Today-feeling better. Up to the bathroom. Appetite improving. For the bedside. No fever no chills. Feels about 60% better. Review of systems: Was done for constitutional, cardiovascular, GI, pulmonary. relevant finding as above Active Medications Acetaminophen (Tylenol Tab) 650 mg PO Q6HR PRN PRN Reason: Mild Pain or Fever > 100.5 Last Admin: 05/11/19 16:08 Dose: 650 mg Documented by: Heparin Sodium (Porcine) (Heparin) 5,000 unit SQ Q8HR [facility] Last Admin: 05/11/19 15:35 Dose: 5,000 unit Documented by: Sodium Chloride (Saline 0.9%) 1,000 mls @ 75 mls/hr IV .[id number] [facility] Last Admin: 05/11/19 11:57 Dose: 75 mls/hr Documented by: Ceftriaxone Sodium 1 gm/ (Sodium Chloride) 50 mls @ 100 mls/hr IVPB Q24HR [facility] Last Admin: 05/11/19 11:56 Dose: 100 mls/hr Documented by: Montelukast Sodium (Singulair) 10 mg PO HS [facility] Last Admin: 05/11/19 00:00 Dose: 10 mg Documented by: Naloxone HCl (Narcan) 0.2 mg IV Q2M PRN PRN Reason: Opioid Reversal Naproxen (Naprosyn) 250 mg PO BID PRN PRN Reason: Pain Last Admin: 05/11/19 15:39 Dose: 250 mg Documented by: Oxybutynin Chloride (Ditropan Xl) 10 mg PO DAILY [facility] Last Admin: 05/11/19 08:00 Dose: 10 mg Documented by: Pantoprazole Sodium (Protonix) 40 mg PO DAILY [facility] Last Admin: 05/11/19 08:00 Dose: 40 mg Documented by: Sodium Bicarbonate (Sodium Bicarbonate Tab) 650 mg PO TID [facility] Last Admin: 05/11/19 15:35 Dose: 650 mg Documented by: Trospium (Sanctura) 20 mg PO BID [facility] Last Admin: 05/11/19 08:00 Dose: 20 mg Documented by: On examination: VITAL SIGNS: 98.5, 66, 18, [id number], 94% on room air GENERAL APPEARANCE: BMI 35, laying in bed, awake. HEENT: Normal external appearance of nose and ear. Oral cavity normal EYES: Pupils equal. Conjunctiva normal. NECK: JVD not raised. Mass not palpable. RESPIRATORY: Respiratory effort normal. Lungs clear to auscultation. CARDIOVASCULAR: First and second sounds normal. No edema. ABDOMEN: Soft. Liver and spleen not palpable. No tenderness. No mass palpable. PSYCHIATRY: Alert and oriented x3. Mood and affect normal. INVESTIGATIONS, reviewed in the clinical context: White count 9.6 hemoglobin 11.7 platelets 173 potassium 4.2 creatinine 0.86 lactic acid 1.5 Previous testing: White count 13.1 hemoglobin 12.9 platelets 125 potassium 4.1 creatinine 1.15 lactic acid 2.8 Influenza A and B both negative EKG tracing personally reviewed by me-sinus rhythm Chest x-ray film-lung loja clear Assessment: -Admitted with chills fever, severe myalgia, weakness in the legs and some urinary hesitancy. Franklin to be possible UTI. UA sample was taken after the patient received antibiotic. -Hyperlipidemia -Possible BPH -Osteoarthritis, primary Plan: Patient remains on IV fluids. Decreased to 75 mL an hour. Continue with IV ceftriaxone. DC vancomycin. Encouraged the patient to ambulate and be out of bed. Discussed with the patient and . Hopefully can be discharged in the next 24 hours
[2019-05-11] MEDS: MONTELUKAST 10 MG TAB PO SCH ×2 (20:55)
[2019-05-12] MEDS: SODIUM CHLORIDE 0.9% 1,000 ML IV SCH (03:12)
[2019-05-12 07:55] LABS: African American GFR (CKD) >90 (>60 ml/min/1.73 sqM); Anion Gap 7 mmol/L; Blood Urea Nitrogen 15 mg/dL (9-20); Calcium 8.3 mg/dL (8.4-10.2); Carbon Dioxide 25 mmol/L (22-30); Chloride 107 mmol/L (98-107); Glucose 84 mg/dL (74-99); Non-African American GFR(CKD) 85 (>60 ml/min/1.73 sqM); Potassium 4.5 mmol/L (3.5-5.1); Sodium 139 mmol/L (137-145)
[2019-05-12 08:05] VITALS: BP 133/69; PULSE 61; RESP 18; TEMP 97.9
[2019-05-12] MEDS: HEPARIN SODIUM,PORCINE 5,000 UNIT/ML 1 ML VIAL SQ SCH (08:20)
[2019-05-12] MEDS: SODIUM BICARBONATE TAB 650 MG TAB PO SCH (08:21)
[2019-05-12] MEDS: OXYBUTYNIN 10 MG TAB.ER.24 PO SCH (08:21)
[2019-05-12] MEDS: PANTOPRAZOLE 40 MG TABLET PO SCH (08:21)
[2019-05-12] MEDS: TROSPIUM CHLORIDE 20 MG TABLET PO SCH (08:21)
--- NOTE | 2019-05-12 09:27 | CDI ---
Documentation Clarification Form Date: 05/12/2019 09:07:45 AM From: Deisy Navas RN CCDS Admit Date: 05/10/2019 08:16:00 PM Patient Name: Jamarcus Banuelos Visit Number: [id number] Discharge Date: ATTENTION: The Clinical Documentation Specialists (CDI) and [facility] Coding Staff appreciate your assistance in clarifying documentation. Please respond to the clarification below the line at the bottom and electronically sign. The CDI & [facility] Coding staff will review the response and follow-up if needed. Please note: Queries are made part of the Legal Health Record. If you have any questions, please contact the author of this message via ITS. Dr. Garfield Smith The diagnosis Sepsis was documented in the H&P 05/09 but is not noted in subsequent documentation. History/Risk Factors: 73-year-old male presents to the ED via EMS for evaluation for generalized weakness and chills with rigors. Patient diagnosed with possible UTI. Medical history Prostate disorder and recent cellulitis of his left leg 3 months ago. Clinical Indicators: 3/2 VSS 84/38 60 101.4 16 93% ra 3/2 Labs Wbc 13.1, Lactic acid 2.8, Treatment: 3/2 Rocephin Ivpb X1, 0.9ns 2.5L bolus followed by 150cc/hr, Vancomycin Ivpb x1; 3/3 Vancomycin Ivpb x1, Rocephin IVPB Q 24 Hrs, 0.9ns changed to 75cc/hr. Please clarify if the Sepsis was * Sepsis Present/active this admission * Sepsis Treated and resolved this admission * Sepsis Ruled out * Other, please specify * Clinically unable to determine (Last Query Form Revision: November 2018) Sepsis, present on admission MTDD
--- NOTE | 2019-05-12 22:16 | P.DS ---
Providers Date of admission: 05/10/19 20:16 Expected date of discharge: 05/12/19 Attending physician: Garfield Smith Primary care physician: Jovanny Lucas [facility] Course: Presenting complaint: Chills History of presenting complaint: This pleasant gentleman admitted with chills, generalized weakness tiredness weakness in the legs. Had a fever on presentation. Had trouble making urine. No obvious respiratory symptoms. Momence to be admitted with acute viral syndrome and/or acute UTI. Responded well to empiric antibiotics and IV fluids. Today-feeling much better. Did go to the bathroom. Later walk in the hallway. Appetite improving. at the bedside. On examination: VITAL SIGNS: 97.9, 61, 18, 133/69, 95% on room air GENERAL APPEARANCE: BMI 35, laying in bed, awake. HEENT: Normal external appearance of nose and ear. Oral cavity normal EYES: Pupils equal. Conjunctiva normal. NECK: JVD not raised. Mass not palpable. RESPIRATORY: Respiratory effort normal. Lungs clear to auscultation. CARDIOVASCULAR: First and second sounds normal. No edema. ABDOMEN: Soft. Liver and spleen not palpable. No tenderness. No mass palpable. PSYCHIATRY: Alert and oriented x3. Mood and affect normal. INVESTIGATIONS, reviewed in the clinical context: White count 9.6 hemoglobin 11.7 platelets 173 potassium 4.2 creatinine 0.86 lactic acid 1.5 Previous testing: Depression 4.5 bicarb 25 creatinine 0.87 Previous testing White count 13.1 hemoglobin 12.9 platelets 125 potassium 4.1 creatinine 1.15 lactic acid 2.8 Influenza A and B both negative EKG tracing personally reviewed by me-sinus rhythm Chest x-ray film-lung loja clear Blood culture negative Assessment: -Admitted with chills fever, severe myalgia, weakness in the legs and some urinary hesitancy. Momence to be possible UTI. Or acute viral syndrome.. -Hyperlipidemia -Possible BPH -Osteoarthritis, primary Disposition: Home Patient Condition at Discharge: Stable Plan - Discharge Summary Discharge Rx Participant: No New Discharge Prescriptions: New Cefuroxime Axetil [Ceftin] 500 mg PO BID 5 Days #10 tab Continue Montelukast Sodium [Singulair] 10 mg PO HS Cholecalciferol [Vitamin D3 (25 Mcg = 1000 Iu)] 1,000 unit PO DAILY Tolterodine [Detrol] 2 mg PO DAILY Trospium Chloride [Sanctura] 20 mg PO BID [place]-3 Fatty Acids/Fish Oil [Fish Oil 1,000 mg Softgel] 1 cap PO DAILY Omeprazole [PriLOSEC] 40 mg PO DAILY Naproxen Sodium [Aleve] 220 mg PO BID PRN PRN Reason: Pain Discontinued Naproxen 500 mg PO BID PRN PRN Reason: Pain Discharge Medication List Cholecalciferol [Vitamin D3 (25 Mcg = 1000 Iu)] 1,000 unit PO DAILY 04/01/19 [History] Montelukast Sodium [Singulair] 10 mg PO HS 04/01/19 [History] [place]-3 Fatty Acids/Fish Oil [Fish Oil 1,000 mg Softgel] 1 cap PO DAILY 04/01/19 [History] Tolterodine [Detrol] 2 mg PO DAILY 04/01/19 [History] Trospium Chloride [Sanctura] 20 mg PO BID 04/01/19 [History] Naproxen Sodium [Aleve] 220 mg PO BID PRN 05/10/19 [History] Omeprazole [PriLOSEC] 40 mg PO DAILY 05/10/19 [History] Cefuroxime Axetil [Ceftin] 500 mg PO BID 5 Days #10 tab 05/12/19 [Rx] Follow up Appointment(s)/Referral(s): Jovanny Lucas MD [Primary Care Provider] - 1-2 days (office not answering at time of discharge. Please call to make appointment) Patient Instructions/Handouts: Urinary Tract Infection in Men (DC) Discharge Disposition: HOME SELF-CARE
== END 2019-05-12 12:46 | disposition home or self-care (01) | DRG 872 ==
LOC: EC 18:03 → 3SCARD 20:16 → 4SSUR 05-11 19:14
PROVIDERS: ADMIT Hospitalist; ATTEND Hospitalist
DX: A41.89 Other specified sepsis (principal); N39.0 Urinary tract infection, site not specified; E87.2 Acidosis; L03.116 Cellulitis of left lower limb; E78.5 Hyperlipidemia, unspecified; N40.1 Benign prostatic hyperplasia with lower urinary tract symptoms; M19.90 Unspecified osteoarthritis, unspecified site; D69.6 Thrombocytopenia, unspecified; R39.11 Hesitancy of micturition; B34.9 Viral infection, unspecified; Z79.899 Other long term (current) drug therapy; Z87.891 Personal history of nicotine dependence; Z98.49 Cataract extraction status, unspecified eye
CPT/HCPCS: 36415; 71046; 80048; 80053; 81001; 82550; 83605; 85025; 85610; 85730; 87040; 87502; 93005; 96365; 96366; 96367; 99291

== ENCOUNTER → 2019-05-14 | Outpatient (CLI) | payer MEDICARE, OTHER ==
--- NOTE | 2019-05-14 12:56 | US ---
EXAMINATION TYPE: US venous doppler duplex LE DATE OF EXAM: 05/14/2019 12:47 PM COMPARISON: NONE CLINICAL HISTORY: I82.409 Deep venous thrombosis bilat low ext. swelling in lower legs ongoing for a while, no h/o dvt SIDE PERFORMED: Bilateral TECHNIQUE: The lower extremity deep venous system is examined utilizing real time linear array sonog dimas with graded compression, doppler sonography and color-flow sonography. VESSELS IMAGED: External Iliac Vein (EIV) Common Femoral Vein Deep Femoral Vein Greater Saphenous Vein * Femoral Vein Popliteal Vein Small Saphenous Vein * Proximal Calf Veins (* superficial vessels) Grayscale, color doppler, spectral doppler imaging performed of the deep veins of the lower extremiti es. There is normal flow, compressibility, vascular waveforms. Right Leg: Appears negative for DVT Left Leg: Appears negative for DVT tech impression to Dr Lucas IMPRESSION: No sonographic evidence of deep venous thrombosis within the visualized bilateral lower extremities.
== END | disposition home or self-care (01) ==
LOC: RADUSWWP 12:10
PROVIDERS: ATTEND Family Medicine
DX: I82.409 Acute embolism and thrombosis of unspecified deep veins of unspecified lower extremity (principal)
CPT/HCPCS: 93970

== ENCOUNTER → 2020-09-11 | Outpatient (CLI) | payer MEDICARE, OTHER | END | disposition home or self-care (01) | DX: M79.89 Other specified soft tissue disorders (principal) | CPT/HCPCS: 82565; 84520; 70491; 36415; Q9967 ==

== ENCOUNTER → 2020-11-06 | Outpatient (CLI) | payer MEDICARE, OTHER ==
--- NOTE | 2020-11-06 09:56 | P.PAINCN ---
History of Present Illness - Reason for Consult Consult date: 11/06/20 - History of Present Illness This is a 75-year-old patient referred by Dr. Dawson with a chief complaint of chronic pain in the low back. He rates his pain as an 8 out of 10 with pain involving the low back and bilateral groin. He also has some paresthesias in his bilateral feet and occasional bilateral lower extremity weakness. Most of his pain is in his low back. His overall function has been affected as he is unable to walk for more than half a block before needing to stop. He last had a radiofrequency ablation 2018 with 100% relief which lasted about 9 months. He is also had a bilateral L5 transforaminal epidural steroid injection 2018 that gave him 80% relief of his lower extremity pain. He recently underwent bilateral medial branch blocks (which both times gave > 90% relief). with Dr. Dawson and is here to establish care and receive bilateral radiofrequency ablation. In terms of conservative therapy he is performing home exercises and will attempt to establish care with a chiropractor. Patient denies adverse drug effects from medications. Patient also denies new- onset weakness, bowel/bladder incontinence, or any other signs or symptoms of cauda equina syndrome. There are no signs of acute intoxication, and no indications of medication diversion or overuse. In addition to above, 13-point review of systems is also negative for chest pain, shortness of breath, changes in vision, changes in hearing, new onset weakness, abdominal pain, diarrhea, extreme fatigue, malaise, fever, skin changes, homicidal or suicidal ideation, or bowel or bladder incontinence. Physical exam: Vital Signs: Reviewed in EMR GENERAL: Well appearing, in no acute distress PSYCH: Mood and affect is appropriate. Awake, alert, and oriented SKIN: Skin color, texture, turgor normal, no rashes or lesions HEENT: Normocephalic, atraumatic. EOM intact CV: No pedal edema RESP: Respirations are unlabored, no audible wheezing GI: Abdomen non-distended MUSCULOSKELETAL: Decreased strength with plantarflexion bilaterally 4/5. No atrophy or tone abnormalities are noted. Lumbar spine: Straight leg raising in the sitting position is negative for radicular pain. pain to palpation over the lumbar spine and paraspinous muscles. positive for pain with facet loading and back extension/rotation. Nearly zero extension, intact flexio Extremities: Peripheral joint ROM is full and pain free without obvious instability or laxity in all four extremities. No edema or skin discolorations noted. Gait: Gait is normal NEUR: Bilateral upper and lower extremity coordination and muscle stretch reflexes are physiologic and symmetric. Negative clonus. No loss of sensation is noted. Cranial nerves are grossly intact. Imaging: Lumbar MRI shows multilevel high-grade neural foraminal stenosis at L3-L4 severe on the right moderate the left, L4-L5 moderate bilateral narrowing and L5-S1 severe facet osteoarthritis. EMG shows no evidence of lumbar radiculopathy Assessment: 1. Lumbar spondylosis 2. Lumbar spinal canal stenosis Plan: - Proceed with bilateral RFA at L4-5 and L5-S1 I spent 50 minutes on patient care today. The time was used to review medical records including relevant urine studies and prescription history (MAPs), review of the available imaging, evaluation and examination the patient, coordination of care at the medical staff and if applicable referring physicians, as well as creation of the medical record. Past Medical History Past Medical History: Hyperlipidemia, Prostate Disorder Additional Past Medical History / Comment(s): buldging disc History of Any Multi-Drug Resistant Organisms: None Reported Additional Past Surgical History / Comment(s): hemorrhoidectomy, cataracts removed. pain procedures Past Anesthesia/Blood Transfusion Reactions: No Reported Reaction Additional Past Anesthesia/Blood Transfusion Reaction / Comm: pt adopted Smoking Status: Never smoker - Past Family History Mother History Unknown: Yes Family Medical History: No Reported History Additional Family Medical History / Comment(s): pt states he was adopted, parents unknown. Medications and Allergies Home Medications Medication Instructions Recorded Confirmed Type Montelukast Sodium [Singulair] 10 mg PO HS 04/01/19 11/02/20 History Trospium Chloride [Sanctura] 20 mg PO DAILY 04/01/19 11/02/20 History Ascorbic Acid [Vitamin C] 500 mg PO DAILY 11/02/20 11/02/20 History Cholecalciferol [Vitamin D3 (25 25 mcg PO DAILY 11/02/20 11/02/20 History Mcg = 1000 Iu)] Famotidine 40 mg PO DAILY 11/02/20 11/02/20 History Fluticasone Nasal [place] [Flonase 1 spray EA NOSTRIL DAILY 11/02/20 11/02/20 History Nasal [place]] Loratadine 10 mg PO DAILY 11/02/20 11/02/20 History Meloxicam 15 mg PO DAILY 11/02/20 11/02/20 History Naltrexone HCl [Revia] 50 mg PO DAILY 11/02/20 11/02/20 History [place]-3 Fatty Acids/Fish Oil [Fish 1 each PO DAILY 11/02/20 11/02/20 History Oil 1,000 mg Softgel] Rosuvastatin [Crestor] 20 mg PO DAILY 11/02/20 11/02/20 History Vit C/E/Zn/Coppr/Lutein/Zeaxan 1 each PO DAILY 11/02/20 11/02/20 History [Preservision Areds 2 Softgel] buPROPion HCL [buPROPion HCL Xl] 150 mg PO DAILY 11/02/20 11/02/20 History metFORMIN HCL [Glucophage] 500 mg PO DAILY 11/02/20 11/02/20 History Allergies Allergy/AdvReac Type Severity Reaction Status Date / Time No Known Allergies Allergy Verified 11/02/20 15:30 PQRS Measure Charge Sheet PQRS Narrative: Smoking Status Former smoker Pain Intensity [Lower Back] 8 Scale Used Numeric (1 - 10) Home Medications: Ambulatory Orders Montelukast Sodium [Singulair] 10 mg PO HS 04/01/19 Trospium Chloride [Sanctura] 20 mg PO DAILY 04/01/19 Ascorbic Acid [Vitamin C] 500 mg PO DAILY 11/02/20 Cholecalciferol [Vitamin D3 (25 Mcg = 1000 Iu)] 25 mcg PO DAILY 11/02/20 Famotidine 40 mg PO DAILY 11/02/20 Fluticasone Nasal [place] [Flonase Nasal [place]] 1 spray EA NOSTRIL DAILY 11/02/20 Loratadine 10 mg PO DAILY 11/02/20 Meloxicam 15 mg PO DAILY 11/02/20 Naltrexone HCl [Revia] 50 mg PO DAILY 11/02/20 [place]-3 Fatty Acids/Fish Oil [Fish Oil 1,000 mg Softgel] 1 each PO DAILY 11/02/20 Rosuvastatin [Crestor] 20 mg PO DAILY 11/02/20 Vit C/E/Zn/Coppr/Lutein/Zeaxan [Preservision Areds 2 Softgel] 1 each PO DAILY 11/02/20 buPROPion HCL [buPROPion HCL Xl] 150 mg PO DAILY 08/26/21 metFORMIN HCL [Glucophage] 500 mg PO DAILY 11/02/20
[2020-11-06 10:15] VITALS: BP 117/71; PULSE 65; RESP 20; TEMP 98
== END ==
LOC: PNWHC3 09:33
PROVIDERS: ATTEND Anesthesiology
DX: M47.816 Spondylosis without myelopathy or radiculopathy, lumbar region (principal); M48.061 Spinal stenosis, lumbar region without neurogenic claudication; E78.5 Hyperlipidemia, unspecified; Z87.891 Personal history of nicotine dependence
CPT/HCPCS: 99211

== ENCOUNTER 2020-12-15 07:12 | Day surgery (SDC) | payer MEDICARE, OTHER ==
[2020-12-14 09:10] VITALS: BMI 33.2
[2020-12-15 07:42] VITALS: RESP 16; TEMP 96.6
[2020-12-15] MEDS ORDERED: LIDOCAINE 1% (10MG/ML) FOR IV START INTRADERMA ONE (07:51)
[2020-12-15] MEDS ORDERED: ROPIVACAINE 5MG/ML 20ML VIAL ONE (08:14)
[2020-12-15] MEDS ORDERED: TRIAMCINOLONE ACETONIDE 40 MG/ML 1 ML VIAL ONE (08:14)
[2020-12-15] MEDS ORDERED: LIDOCAINE 1% INJ 10MG/ML (20 ML MDV) ONE (08:14)
[2020-12-15] MEDS ORDERED: fentaNYL (PF) 50 MCG/ML 2 ML AMP ONE (08:14)
[2020-12-15] MEDS ORDERED: MIDAZOLAM 2 MG/2 ML VIAL ONE (08:14)
--- NOTE | 2020-12-15 08:57 | P.PCN ---
Date of Procedure: 12/15/20 Surgeon: Khoi Quinn Pathology: none sent Condition: stable Disposition: PACU Description of Procedure: PREOPERATIVE DIAGNOSIS: Lumbar spondylosis without myelopathy, obesity POSTOPERATIVE DIAGNOSIS: Lumbar spondylosis without myelopathy, obesity PROCEDURES : Bilateral Radiofrequency thermocoagulation L4-L5, and L5-S1 medial branch, with fluoroscopic guidance ANESTHESIA: IV moderate conscious sedation with versed and fentanyl by the anesthesia Department and local infiltration with lidocaine 1% 5 ml Physician:Khoi Quinn MD EBL: Minimal PROCEDURE INDICATION: The patient with low back pain secondary to lumbar facet arthropathy who had more than 50% relief of her pain with previous diagnostic lumbar medial branch block with bupivacaine. PROCEDURE DESCRIPTION / TECHNIQUE: The patient was seen and identified in the preoperative area. Risks, benefits, complications, including but not limited to risk of infection ,bleeding , allergic reactions to the medications and no complete pain relief , and alternatives were discussed with the patient, the patient agreed to proceed with the procedure and signed the consent. IV was started. Vital signs remained stable throughout the procedure. Patient was taken to the OR and time out was completed. The patient was placed in the prone position on the procedure table. The lumber area was prepped and draped in the usual sterile fashion. . Vital signs were closely monitored during the procedure .IV sedation was used during the procedure to decrease patients anxiety. The target points were identified as follows: For the L5-S1 level which corresponds to the dorsal ramus of L5 the target point was at the superior medial aspect of the sacral ala on both sides of the spine on the AP view of fluoroscopy and for the L3, and L4 medial branches the target points were at the connection between the transverse process and the superior articular process of L4, and L5 vertebra respectively on the oblique view of fluoroscopy bilater ally. skin was marked, and localized with 1% lidocaineat these points. Subsequently, an [id number] radiofrequency needles with a 10-mm curved active tips were advanced guided by fluoroscopy to each of the target points mentioned above in a superior medial direction to get the active tips as parallel as possible to the medial branches tracks. AP, oblique, and lateral views of fluoroscopy were used to verify needle tips position. Each level then underwent motor testing at 2.5 Hz and 0 to 3 volt with local stimulation, but no radicular symptoms down the legs. I then injected 1 mL of lidocaine 1% in each needle before starting radiofrequency thermocoagulation at 80 degrees celsius for 90 seconds. After that I injected 1 ml of PF ropivacaine 0.5%(3 mls) with 40 mg of Kenalog, 1 mL of this mixture was given in each needle before taking the needles out intact. At the end of the procedure, the skin was cleansed and bandages were applied. A copy of needle placement fluoroscopy was saved on the C-arm machine. COMPLICATIONS: No acute complications. DISPOSITION / PLANS: The patient was placed in a supine position and transferred to the recovery area in a stable condition for observation and was discharged from the recovery room after meeting discharge criteria. Home discharge instructions given to the patient by the staff. The patient was reexamined prior to discharge. The patient will schedule a follow up in the [facility] in 2-4 weeks.
[2020-12-15] MEDS ORDERED: IV FLUID CONTINUATION 1,000 ML IV ONE (08:59)
--- NOTE | 2020-12-15 09:05 | FL ---
EXAMINATION TYPE: FL guided pain mgmt statistic DATE OF EXAM: 12/15/2020 HISTORY: Fluoroscopy time 25 seconds of fluoroscopy provided. IMPRESSION: 1. Fluoroscopy time.
[2020-12-15 09:17] VITALS: BP 130/81; PULSE 59
== END 2020-12-15 09:35 | disposition home or self-care (01) ==
LOC: ORPAIN 07:12
PROVIDERS: ATTEND Anesthesiology
DX: M47.816 Spondylosis without myelopathy or radiculopathy, lumbar region (principal); E66.9 Obesity, unspecified; Z68.34 Body mass index [BMI] 34.0-34.9, adult; R73.03 Prediabetes; M19.90 Unspecified osteoarthritis, unspecified site
CPT/HCPCS: 64635; 64636; J2250; J3301; J2001 ×2; J3010; J2795

== ENCOUNTER → 2021-05-21 | Outpatient (CLI) | payer MEDICARE, OTHER ==
[2021-05-21 13:24] VITALS: BP 121/62; PULSE 59; RESP 18; TEMP 97.9
--- NOTE | 2021-05-21 13:43 | P.PN ---
Subjective Progress Note Date: 05/21/21 Principal diagnosis: A 75 yr old male with a history of severe and chronic low back pain secondary to lumbar degenerative disc diseases and lumbar spondylosis with facet arthropathy presents today for evaluation of lower back pain. Patient had a bilateral RFA of the L3 L5 on 12/28 and experienced approximately 60% pain relief for 5 months status post procedure. Pain started to return 1 week ago and is currently 5 out of 10 in intensity, constant, dull, achy, localized in the lower aspects of the lumbar spine with accompanying stiffness. Escalates as high as 9 out of 10 with inactivity. Pain is alleviated with injections, physical therapy of which she is currently in, use of a cane for ambulation, use of a walker for ambulation, massage therapy of which he is currently an, repositioning and rest. Interventional pain procedures completed include BL RFA L3-L5 last completed 12/2020. Patient denies any side effects of the medication(s), denies excessive drowsiness or sleepiness, denies suicidal ideation and reports that the current pain medication is helping to control the pain and improve activities of daily living. Patient denies any motor or sensory deficits. Patient denies any fever or night sweats, denies any change in the bowel movements or urination. Physical Examination: -Constitutional: Cooperative. Not in acute distress . -HEENT: Neck is supple. No lymphadenopathy. No thyromegaly. Normal thyroid size. Eyes: No ptosis , no icterus, no photophobia. ENT: No auditory deficits. Normal oropharynx. No Thrush. - Respiratory: Chest clear to auscultations bilaterally. No wheezing. No rho nchi. - Cardiovascular: Regular rate and rhythm. S1 / S2 , no S3 , no S4. - Gastrointestinal: Abdomen soft no tenderness. Bowel sounds positive in all four quadrants. No organomegaly. - Genitourinary: Deferred. - Neurologic: Cranial nerve II to XII intact. No focal neurological deficits. - Psychatric: Alert & oriented x 3. Matching mood & appropriate affect. Judgment and insight intact. - Lymphatic: No Lymphadenopathy. - Musculoskeletal: Cervical spine: Muscle bulk/ tone/ strength in the bilateral upper extremities normal. Facet loading test cervical area positive. Lumbar spine: Motor bulk/ tone/ strength lower extremities , thigh and legs : 5/5 Deep tendon reflexes : Normal Knee Jerk. Normal Ankle Jerk . Vertebral body tenderness to palpation over Lumbar Facet Loading Test positive over L4-L54, L5-S1 with jump reflex, accompanying paraspinal spasms Straight Leg Raise: positive at 30 degrees right side/ left side Gaenslen's Test positive Sacral spine : Severe tenderness over the Sacroiliac joint: right side / left side Range of motion: Flexion of the lumbar spine <60 degrees Range of motion: Extension of the lumbar spine <20 degrees Gaenslen's Test positive Lo test: positive right side / left side Assessment and plan: Chronic low back pain secondary to lumbar degenerative disc disease , lumbar spondylosis with facet arthropathy without myelopathy Recommendation of bilateral RFA L4-L5, L5-S1. Risks, benefits of procedure discussed and patient verbalized understanding. Denies anticoagulant use. Denies medical history of diabetes mellitus. All patient questions answered MAPS reviewed and it was appropriate. I have spent 31 minutes on patient care today. Dr Torrez was available by phone for the evaluation of this patient. The time was used to review the medical records including relevant urine studies and Prescription history (MAPs), review of the available imaging, evaluation and examination of the patient, coordination of care with the medical staff and if applicable referring physicians, as well as creation of the medical record Objective - Vital Signs Vital signs: Vital Signs Temp 97.9 F 05/21/21 13:19 Pulse 59 L 05/21/21 13:19 Resp 18 05/21/21 13:19 BP 121/62 05/21/21 13:19 Pulse Ox 94 L 05/21/21 13:19 Intake & Output 05/20/21 05/21/21 05/21/21 18:59 06:59 18:59 Weight 127.006 kg PQRS Measure Charge Sheet Mode of Arrival: Ambulatory - Pain Location Lower Back Non-Pharmacological Interventions: Exercise, Home Exercise, Inactivity, Massage, Physical Therapy, Stretching Pharmacological Interventions: Block PQRS Narrative: Smoking Status Former smoker Blood Pressure 121/62 Pain Intensity [Lower Back] 5 Scale Used Numeric (1 - 10) Hx Alcohol Use (MH) No Home Medications: Ambulatory Orders Montelukast Sodium [Singulair] 10 mg PO HS 04/01/19 Trospium Chloride [Sanctura] 20 mg PO DAILY 04/01/19 Ascorbic Acid [Vitamin C] 500 mg PO DAILY 11/02/20 Cholecalciferol [Vitamin D3 (25 Mcg = 1000 Iu)] 25 mcg PO DAILY 11/02/20 Famotidine 40 mg PO DAILY 11/02/20 Fluticasone Nasal [place] [Flonase Nasal [place]] 1 spray EA NOSTRIL DAILY 11/02/20 Loratadine 10 mg PO DAILY 11/02/20 [place]-3 Fatty Acids/Fish Oil [Fish Oil 1,000 mg Softgel] 1 each PO DAILY 11/02/20 Rosuvastatin [Crestor] 20 mg PO DAILY 11/02/20 Vit C/E/Zn/Coppr/Lutein/Zeaxan [Preservision Areds 2 Softgel] 1 each PO DAILY 11/02/20
== END ==
LOC: PNWHC3 12:43
PROVIDERS: ATTEND Physician Assistant Medical
DX: M51.36 Other intervertebral disc degeneration, lumbar region (principal); M47.816 Spondylosis without myelopathy or radiculopathy, lumbar region; G89.29 Other chronic pain; Z87.891 Personal history of nicotine dependence
CPT/HCPCS: 99211

== ENCOUNTER 2021-06-22 11:34 | Day surgery (SDC) | payer MEDICARE, OTHER ==
[~2021-06-22 11:34] MED LIST changes: +LIDOCAINE 1% (10MG/ML) FOR IV START INTRADERMA PRN
[2021-06-22 12:15] VITALS: TEMP 97.5
[2021-06-22] MEDS ORDERED: ROPIVACAINE 5MG/ML 20ML VIAL ONE (12:24)
[2021-06-22] MEDS ORDERED: fentaNYL (PF) 50 MCG/ML 2 ML AMP ONE (12:24)
[2021-06-22] MEDS ORDERED: methylPREDNISolone ACETATE 40 MG/ML 1 ML VIAL ONE (12:24)
[2021-06-22] MEDS ORDERED: MIDAZOLAM 2 MG/2 ML VIAL ONE (12:24)
--- NOTE | 2021-06-22 12:54 | P.PCN ---
Date of Procedure: 06/22/21 Procedure(s) Performed: PREOPERATIVE DIAGNOSIS: 1-Lumbar Spondylosis with Facet Arthropathy without myelopathy. 2- Lumber degenerative disc disease. POSTOPERATIVE DIAGNOSIS: 1- Lumbar Spondylosis with Facet Arthropathy without myelopathy. 2- Lumber degenerative disc disease. PROCEDURES : Bilateral Radiofrequency thermocoagulation, L3 , L4 , and L5 medial branch, with fluoroscopic guidance (fluoroscopy images available in the radiology department) ( to denervate the facet joint at bilateral L4-5 ,and L5-S1 levels ). ANESTHESIA: Monitored anesthesia care as per anesthesia department . EBL: Minimal PROCEDURE INDICATION: The patient with low back pain secondary to lumbar facet arthropathy who had more than 50% relief of her pain with previous diagnostic lumbar medial branch block with bupivacaine. PROCEDURE DESCRIPTION / TECHNIQUE: The patient was seen and identified in the preoperative area. Risks, benefits, complications, including but not limited to risk of infection ,bleeding , allergic reactions to the medications and no complete pain releife , and alternatives were discussed with the patient, the patient agreed to proceed with the procedure and signed the consent. IV was started. Vital signs remained stable throughout the procedure. Patient was taken to the OR and time out was completed. The patient was placed in the prone position on the procedure table. The lumber area was prepped and draped in the usual sterile fashion. . Vital signs were closely monitored during the procedure .IV sedation was used during the procedure to decrease patients anxiety. Using AP and then oblique fluoroscopy, the ``eye of the Chuy dog akhil esponding to the connection between the superior and transverse articular processes of right L3, L4, and L5 were identified, marked, and localized with 1% lidocaine. Subsequently, a 18 guage 150-mm radiofrequency cannula with a 10-mm active tip was advanced guided by fluoroscopy to each of the``eyes of the Chuy dog at right L3, L4, and L5. Each site then underwent sensory testing at 50 Hz and 0 to 1 volt and motor testing at 2.5 Hz and 0 to 3 volt with local stimulation, but no radicular symptoms down the legs. Thereafter each sites underwent radiofrequency thermocoagulation at 80 degrees celsius for 90 seconds after injecting 0.5 ml of PF Ropivacaine 1ml, then after the thermocoagulation done , 1 ml of the block solution containing Depo-Medrol 20 mg and 3 ml of Ropivacaine 0.5% was injected at the right L3 , L4 , and L5 , levels after negative aspiration of CSF and blood and with no paresthesias. Cannulas were retracted while injecting lidocaine 1% until the needle is out. The same procedure was repeated at the level of Left L3, L4, and L5 levels. At the end of the procedure, the skin was cleansed and bandages were applied. COMPLICATIONS: No acute complications. DISPOSITION / PLANS: The patient was placed in a supine position and transferred to the recovery area in a stable condition for observation and was discharged from the recovery room after meeting discharge criteria. Home discharge instructions given to the patient by the staff. The patient was reexamined prior to discharge. The patient will schedule a follow up in the clinic in 2-4 weeks.
[2021-06-22] MEDS ORDERED: IV FLUID CONTINUATION 800 ML IV ONE (13:00)
--- NOTE | 2021-06-22 13:11 | FL ---
EXAMINATION TYPE: FL guided pain mgmt statistic DATE OF EXAM: 06/22/2021 CLINICAL HISTORY: Low back pain. TECHNIQUE: Fluoroscopy. COMPARISON: None. FINDINGS: Fluoroscopic guidance was provided during pain relief procedure performed by Dr. Torrez . A total of 25 seconds of fluoroscopic time was utilized during the procedure and 6 spot images are acquired. Images acquired shows needle localization at several levels in the lumbar spine. IMPRESSION: As Above.
[2021-06-22 13:33] VITALS: BP 132/80; PULSE 59; RESP 20
== END 2021-06-22 13:30 | disposition home or self-care (01) ==
LOC: ORPAIN 11:34
PROVIDERS: ATTEND Specialist
DX: M47.816 Spondylosis without myelopathy or radiculopathy, lumbar region (principal); M51.36 Other intervertebral disc degeneration, lumbar region
CPT/HCPCS: 64635; J2250; J1030; J3010; J2795

== ENCOUNTER → 2021-07-12 | Outpatient (CLI) | payer MEDICARE, OTHER ==
[2021-07-12 12:48] VITALS: BP 119/74; PULSE 50; RESP 18; TEMP 98
--- NOTE | 2021-07-12 12:51 | P.PN ---
Subjective Progress Note Date: 07/12/21 Principal diagnosis: A 76 yr old male with a history of severe and chronic low back pain secondary to lumbar degenerative disc diseases and lumbar spondylosis with facet arthropathy presents today for evaluation status post bilateral RFA L3-L5. He states he experienced 80% pain relief status post procedure. Pain level is currently at 10 in intensity, localized the lower aspect of the lumbar spine, achy with standing and lifting. Denies radiation of pain. Pain is alleviated with medications, topicals, injections, heat, physical therapy which she is currently an, massage therapy weekly, home exercise regimen, elevating the lower extremities and rest. Interventional pain procedures completed include bilateral L3-L5 RFA Patient is currently on Tylenol OTC. Aleve OTC. Patient denies any side effects of the medication(s), denies excessive drowsiness or sleepiness, denies suicidal ideation and reports that the current pain medication is helping to control the pain and improve activities of daily living. Patient denies any motor or sensory deficits. Patient denies any fever or night sweats, denies any change in the bowel movements or urination. Physical Examination: -Constitutional: Cooperative. Not in acute distress . -HEENT: Neck is supple. No lymphadenopathy. No thyromegaly. Normal thyroid size. Eyes: No ptosis , no icterus, no photophobia. ENT: No auditory deficits. Normal oropharynx. No Thrush. - Respiratory: Chest clear to auscultations bilaterally. No wheezing. No rhonchi. - Cardiovascular: Regular rate and rhythm. S1 / S2 , no S3 , no S4. - Gastrointestinal: Abdomen soft no tenderness. Bowel sounds positive in all four quadrants. No organomegaly. - Genitourinary: Deferred. - Neurologic: Cranial nerve II to XII intact. No focal neurological deficits. - Psychatric: Alert & oriented x 3. Matching mood & appropriate affect. Judgment and insight intact. - Lymphatic: No Lymphadenopathy. - Musculoskeletal: Cervical spine: Muscle bulk/ tone/ strength in the bilateral upper extremities normal. Facet loading test cervical area positive. Lumbar spine: Motor bulk/ tone/ strength lower extremities , thigh and legs : 5/5 Deep tendon reflexes : Normal Knee Jerk. Normal Ankle Jerk . Vertebral body tenderness over L4 with deep palpation Lumbar Facet Loading Test positive Straight Leg Raise: positive at 30 degrees right side/ left side Gaenslen's Test positive Sacral spine : Severe tenderness over the Sacroiliac joint: right side / left side Range of motion: Flexion of the lumbar spine <60 degrees Range of motion: Extension of the lumbar spine <20 degrees Gaenslen's Test positive Lo test: positive right side / left side Assessment and plan: Chronic low back pain secondary to lumbar degenerative disc disease , lumbar spondylosis with facet arthropathy without myelopathy Patient tolerated procedure well and experienced sufficient and optimal pain relief status post procedure. He may return to our clinic again on an as- needed basis. All patient questions answered MAPS reviewed and it was appropriate. I have spent 31 minutes on patient care today. Dr Torrez was available by phone for the evaluation of this patient. The time was used to review the medical records including relevant urine studies and Prescription history (MAPs), review of the available imaging, evaluation and examination of the patient, coordination of care with the medical staff and if applicable referring physicians, as well as creation of the medical record PQRS Measure Charge Sheet Mode of Arrival: Ambulatory PQRS Narrative: Smoking Status Former smoker Blood Pressure 119/74 Pain Intensity [Lower Back] 3 Scale Used Numeric (1 - 10) Hx Alcohol Use (MH) No Home Medications: Ambulatory Orders Montelukast Sodium [Singulair] 10 mg PO HS 04/01/19 Trospium Chloride [Sanctura] 20 mg PO QAM 04/01/19 Ascorbic Acid [Vitamin C] 500 mg PO DAILY 11/02/20 Cholecalciferol [Vitamin D3 (25 Mcg = 1000 Iu)] 25 mcg PO DAILY 11/02/20 Famotidine 40 mg PO QAM 11/02/20 Fluticasone Nasal [place] [Flonase Nasal [place]] 1 spray EA NOSTRIL DAILY 11/02/20 Loratadine 10 mg PO QAM 11/02/20 [place]-3 Fatty Acids/Fish Oil [Fish Oil 1,000 mg Softgel] 1 each PO DAILY 11/02/20 Rosuvastatin [Crestor] 20 mg PO QAM 11/02/20 Vit C/E/Zn/Coppr/Lutein/Zeaxan [Preservision Areds 2 Softgel] 1 each PO DAILY 11/02/20
== END ==
LOC: PNWHC3 11:58
PROVIDERS: ATTEND Specialist
DX: M51.36 Other intervertebral disc degeneration, lumbar region (principal); M47.816 Spondylosis without myelopathy or radiculopathy, lumbar region; G89.29 Other chronic pain; Z87.891 Personal history of nicotine dependence
CPT/HCPCS: 99211

== ENCOUNTER → 2021-12-14 | Day surgery (SDC) | payer MEDICARE, OTHER ==
[2021-12-12 12:43] VITALS: BMI 32.9
[~2021-12-14] MED LIST changes: +LIDOCAINE 2% INJ 20 MG/ML (2 ML VIAL) ONE; +PROPOFOL 10 MG/ML 20 ML VIAL IV ONE; +fentaNYL (PF) 50 MCG/ML 2 ML AMP ONE
[2021-12-14 07:46] VITALS: TEMP 96.5
[2021-12-14 07:53] LABS: Glucose,Whole Blood 84 mg/dL (70-110)
--- NOTE | 2021-12-14 08:36 | P.PCN ---
Date of Procedure: 12/14/21 Procedure(s) Performed: BRIEF HISTORY: Patient is a 76-year-old, pleasant, white male scheduled for an upper endoscopy as a part of evaluation of throat irritation, intermittent dysphagia to solids for the last several months duration. PROCEDURE PERFORMED: Esophagogastroduodenoscopy with biopsy. PREOPERATIVE DIAGNOSIS: Throat.Irritation and intermittent dysphagia to solids. IV sedation per anesthesia. PROCEDURE: After informed consent was obtained, the patient was brought into the endoscopy unit. IV sedation was administered by Anesthesia under continuous monitoring. Initially the Olympus GIF-140 video endoscope was inserted into the mouth. Esophagus intubated without any difficulty. It was gradually advanced into the stomach and duodenum and carefully examined. The bulb and the second part of the duodenum appeared normal. The scope at this time was withdrawn to the stomach, adequately insufflated with air, and upon careful examination, mucosa of the antrum, scattered erosions and biopsies were done from this area. The body, cardia and the fundus appeared normal. The scope was then withdrawn into the esophagus. The GE junction was located at 44 cm from the incisors. There was a 4 and she'll erythema the GE junction consistent with LA grade a reflux esophagitis. The esophagus appeared normal. There were no erosions or ulcerations seen and biopsies were done from the distal esophagus and the patient tolerated the procedure well. IMPRESSION: 1. Mild circumferential erythema the GE junction consistent with LA grade A reflux esophagitis. 2. Mild antral erosive gastritis 3. No evidence of esophageal stricture. RECOMMENDATIONS: The findings of this examination were discussed with the patient as well as his family. He was advised to follow with the biopsy results. Continue with Pepcid 20 mg twice daily and follow antireflux.
[2021-12-14 08:55] VITALS: BP 140/81; PULSE 48; RESP 16
== END ==
LOC: ORWHC2ENDO 06:35
PROVIDERS: ATTEND Internal Medicine Gastroenterology
DX: K29.50 Unspecified chronic gastritis without bleeding (principal); K21.00 Gastro-esophageal reflux disease with esophagitis, without bleeding; R13.10 Dysphagia, unspecified; E78.5 Hyperlipidemia, unspecified; E11.9 Type 2 diabetes mellitus without complications; N42.9 Disorder of prostate, unspecified; Z79.899 Other long term (current) drug therapy
CPT/HCPCS: 43239; J3010; J2704; J2001; 88305

== ENCOUNTER → 2024-05-21 | Outpatient (CLI) | payer MEDICARE, OTHER ==
[2024-05-21 12:40] LABS: Partial Thromboplastin Time 24.8 sec (22.0-30.0); Prothrombin Time 11.5 sec (10.0-12.5)
[2024-05-21 14:54] LABS: HCT 44.3 % (39.6-50.0); HGB 14.4 g/dL (13.0-17.0); MCH 30.3 pg (27.0-32.0); MCHC 32.5 g/dL (32.0-37.0); MCV 93.3 FL (80.0-97.0); Mean Platelet Volume 9.9 FL (9.5-12.2); NRBC Per 100 WBC 0 X 10*3/uL (0.00-0.01); Platelet Count 316 X 10*3/uL (140-440); RBC 4.75 X 10*6/uL (4.40-5.60); WBC 8.44 X 10*3/uL (4.50-10.00)
[2024-05-21 15:56] LABS: ALT 32 U/L (10-49); AST 22 U/L (14-35); Albumin 4.2 g/dL (3.8-4.9); Albumin/Globulin Ratio 1.56 Ratio (1.60-3.17); Alkaline Phosphatase 96 U/L (41-126); BUN/Creat Ratio 13.56 Ratio (12.00-20.00); Blood Urea Nitrogen 12.2 mg/dL (9.0-27.0); Calcium 9.4 mg/dL (8.7-10.3); Carbon Dioxide 22.3 mmol/L (21.6-31.8); Chloride 105 mmol/L (96-109); Globulin 2.7 g/dL (1.6-3.3); Glucose 102 mg/dL (70-110); Potassium 4.5 mmol/L (3.5-5.5); Sodium 140 mmol/L (135-145); Total Bilirubin 0.7 mg/dL (0.3-1.2); Total Protein 6.9 g/dL (6.2-8.2)
== END | disposition home or self-care (01) ==
LOC: LABPAT 11:34
PROVIDERS: ATTEND Orthopaedic Surgery
DX: Z01.818 Encounter for other preprocedural examination (principal); Z22.322 Carrier or suspected carrier of Methicillin resistant Staphylococcus aureus; E11.9 Type 2 diabetes mellitus without complications; M17.12 Unilateral primary osteoarthritis, left knee
CPT/HCPCS: 80053; 83036; 85027; 85610; 85730; 87070; 93005

== ENCOUNTER → 2024-05-21 | Outpatient (CLI) | payer MEDICARE, OTHER ==
--- NOTE | 2024-05-21 11:37 | CT ---
EXAMINATION TYPE: CT left knee - GRETEL Protocol DATE OF EXAM: 05/21/2024 11:32 AM COMPARISON: None. CLINICAL INDICATION: Male, 78 years old with history of M17.12 UNILATERAL PRIMARY OSTEOARTHRITIS, LEF T KNE; PHH, Left knee GRETEL., pain, TECHNIQUE: Axial images were obtained of the bilateral hips, knee and bilateral ankles: CT left knee - GRETEL Protocol, Additional coronal and sagittal reformatted images and soft tissue and bone window were obtained for review of the bilateral hips, knee and bilateral ankles. Contrast used: mL of , (None if empty) Oral contrast used: (None if empty) CT DLP: 2054 mGycm, Automated exposure control for dose reduction was used. FINDINGS: The visualized portion of the hips demonstrate mild osteoarthrosis changes with osteophyte formation of the acetabulum. No acute intrapelvic process. The bony structures of the pelvis are intact. The visualized knee demonstrates osteophyte formation of the tibial plateau, the patella and femoral condyles. There is joint space narrowing and subchondral sclerosis. No evidence of fracture. Severe atherosclerosis of the arterial risk of fracture. The visualized ankles demonstrates multifocal osteoarthrosis changes with osteophyte formation and mi ld joint space narrowing. Findings are rather severe involving the joints of the feet bilaterally. No evidence of fractures. Other: Scattered colonic diverticula. Fat-containing inguinal hernia. IMPRESSION: 1. End-stage osteoarthrosis changes of the knee. 2. Severe bilateral multifocal osteoarthrosis changes of the joints of the feet. [facility], , 05/21/2024 11:35 AM
== END | disposition home or self-care (01) ==
LOC: RADCTMAIN 10:13
PROVIDERS: ATTEND Orthopaedic Surgery
DX: M17.12 Unilateral primary osteoarthritis, left knee (principal); M19.071 Primary osteoarthritis, right ankle and foot; M19.072 Primary osteoarthritis, left ankle and foot

== ENCOUNTER → 2024-05-26 | Outpatient (CLI) | payer MEDICARE, OTHER ==
--- NOTE | 2024-05-26 20:54 | CT ---
EXAMINATION TYPE: CT chest wo con DATE OF EXAM: 05/26/2024 5:15 PM COMPARISON: Previous CT chest study 192 118. CLINICAL INDICATION: Male, 78 years old with history of R91.1 SOLITARY PULMONARY NODULE; PHH, Solitar y pulmonary nodule in left lung. TECHNIQUE: Multiple axial images were obtained through the chest. Sagittal and coronal reformats were created for review. MIP was performed on a separate workstation. CT DLP: 736.1 mGycm, Automated exposure control for dose reduction was used. FINDINGS: LUNGS/ PLEURA: Subpleural reticular changes and bronchiectasis noted in the left lower lobe with asso ciated left lung volume loss. Scattered subcentimeter pulmonary micronodules, not significantly correia ed from prior studies. No new suspicious or enlarging pulmonary nodule identified. HEART: Size within normal limits.Coronary artery calcifications. MEDIASTINUM: No gross evidence of adenopathy. VASCULATURE: Calcified atherosclerotic disease of the thoracic aorta with dilatation of the ascending portion measuring 4.4 cm in diameter at the level of the right pulmonary artery. Mild dilatation of the main pulmonary artery measuring 3.4 cm, which can be associated with pulmonary hypertension. MUSCULOSKELETAL: No acute osseous abnormalities SOFT TISSUES/LYMPH NODES: Unremarkable. LOWER NECK: No significant findings. UPPER ABDOMEN: No significant findings. IMPRESSION: 1. No acute abnormality in the chest. 2. Left lower lobe predominant bronchiectasis and subpleural reticular changes with associated left lung volume loss. 3. Stable dilatation of the ascending thoracic aorta measuring up to 4.4 cm in diameter. [facility], , 05/26/2024 8:52 PM
== END | disposition home or self-care (01) ==
LOC: RADCTMAIN 16:10
PROVIDERS: ATTEND Family Medicine
DX: R91.1 Solitary pulmonary nodule (principal); J47.9 Bronchiectasis, uncomplicated; I27.20 Pulmonary hypertension, unspecified
CPT/HCPCS: 71250

== ENCOUNTER 2024-06-25 05:47 | Day surgery (SDC) | payer MEDICARE, OTHER ==
[2024-06-25] MEDS ORDERED: TRANEXAMIC 1,000 MG/100ML-NACL 1,000 MG in SALINE 1 100ML.BAG IV PRN (06:00)
[2024-06-25] MEDS ORDERED: TRANEXAMIC 1,000 MG/100ML-NACL 1,000 MG in SALINE 1 100ML.BAG IVPB PRN (06:00)
[2024-06-25 06:53] LABS: Glucose,Whole Blood 97 mg/dL (70-110)
[2024-06-25] MEDS: DOCUSATE 100 MG CAP PO PRN (06:56)
[2024-06-25] MEDS: LACTATED RINGERS 1,000 ML IV SCH (06:57)
[2024-06-25] MEDS: ACETAMINOPHEN TAB 500 MG TAB PO PRN (06:57)
[2024-06-25] MEDS: oxyCODONE ER 10 MG TAB.ER.12H PO PRN (06:57)
[2024-06-25] MEDS: KETOROLAC 15 MG/ML 1 ML VIAL IVP PRN (06:58)
[2024-06-25] MEDS: ONDANSETRON 4 MG/2 ML VIAL IVP PRN (06:58)
[2024-06-25] MEDS: FAMOTIDINE 20 MG/2 ML VIAL IVP PRN (06:58)
[2024-06-25] MEDS: DEXAMETHASONE SOD PHOSPHATE 10 MG/ML 1 ML VIAL IV PRN (06:59)
[2024-06-25] MEDS ORDERED: HYDROmorphone 0.5 MG/0.5 ML SYRINGE IVP PRN ×4 (07:00→09:21)
[2024-06-25] MEDS: fentaNYL (PF) 50 MCG/ML 2 ML AMP IVP PRN (07:04)
[2024-06-25] MEDS: MIDAZOLAM 2 MG/2 ML VIAL IV PRN (07:04)
[2024-06-25] MEDS ORDERED: PHENYLEPHRINE 10 MG/ML VIAL ONE (07:25)
[2024-06-25] MEDS ORDERED: SUCCINYLCHOLINE CHLORIDE 200 MG/10 ML VIAL IV ONE (07:25)
[2024-06-25] MEDS ORDERED: NEOSTIGMINE 1 MG/ML 10 ML VIAL ONE (07:25)
[2024-06-25] MEDS ORDERED: PHENYLEPHRINE-0.9% NACL SYG 1,000 MCG/10 ML SYRINGE ONE (07:25)
[2024-06-25] MEDS ORDERED: PROPOFOL 10 MG/ML 20 ML VIAL IV ONE (07:25)
[2024-06-25] MEDS ORDERED: ROPIVACAINE 5 MG/ML 30 ML VIAL ONE (07:25)
[2024-06-25] MEDS ORDERED: DEXAMETHASONE SOD PHOSPHATE 4 MG/ML 1 ML VIAL ONE (07:25)
[2024-06-25] MEDS ORDERED: ePHEDrine 50 MG/ML 1 ML VIAL ONE (07:25)
[2024-06-25] MEDS ORDERED: fentaNYL (PF) 50 MCG/ML 2 ML AMP ONE (07:25)
[2024-06-25] MEDS ORDERED: LIDOCAINE 1% INJ 10MG/ML (20 ML MDV) ONE (07:25)
[2024-06-25] MEDS ORDERED: GLYCOPYRROLATE 0.2 MG/ML 2 ML VIAL ONE (07:25)
[2024-06-25] MEDS ORDERED: TRANEXAMIC 1,000 MG/100ML-NACL PREMIX BAG ONE (07:25)
[2024-06-25] MEDS ORDERED: ROCURONIUM 10 MG/ML (5 ML VIAL) IV ONE (07:25)
[2024-06-25] MEDS ORDERED: SODIUM CHLORIDE 0.9% (PF) 10 ML VIAL ONE (07:25)
[2024-06-25] MEDS: IV FLUID CONTINUATION 1,000 ML IV ONE (07:27)
[2024-06-25] MEDS: ceFAZolin 3 GM in SODIUM CHLORIDE 0.9% 100 ML IVPB PRN (07:29)
[2024-06-25] MEDS: ROPIVACAINE/EPI/CLONIDINE/KET 50 ML SYRINGE MISCELLANE PRN (08:24)
[2024-06-25] MEDS: LACTATED RINGERS 1,000 ML IV ONE (08:41)
--- NOTE | 2024-06-25 09:20 | P.OP ---
Date of Procedure: 06/25/24 Preoperative Diagnosis: 1. Severe left knee osteoarthritis 2. BMI 34 Postoperative Diagnosis: Same Procedure(s) Performed: 1. Left total knee arthroplasty 2. Computer assisted musculoskeletal navigation using CT/MRI images Implants: 1. [place] [employer] CR Femur Size #6 2. [place] [employer] Dalton Tibial Base Size #6 3. [place] [employer] CS poly Size #6, 9-mm 4. [place] [employer] all poly patella, Size #35 Anesthesia: JOSE A, regional Surgeon: Anthony Alonzo Product Development Coordinator #1: John Salas Estimated Blood Loss (ml): 100 IV fluids (ml): 800 Pathology: none sent Condition: stable Disposition: PACU Indications for Procedure: I met with the patient preoperatively in the office setting and discussed treatment of their symptomatic knee arthritis. They failed a long course of nonsurgical treatment and elected to proceed with an elective total knee replacement. I discussed the potential risks and complications at length and gave them ample time to ask questions. Risks discussed included: risks from anesthesia, superficial site surgical infection, acute and/or chronic periprosthetic joint infection, delayed wound healing, drainage, wound necrosis, instability, stiffness, stiffness requiring manipulation and/or revision surgery, damage to local blood vessels or nerves, aseptic loosening of the implants, extensor mechanism issues including disruption, patellar maltracking, avascular necrosis etc., continued or worsened knee pain, generalized dissatisfaction with surgical outcome, need for revision surgery, an inability to regain preinjury level of function, DVT, PE, other medical complications, and possibly loss of life or limb. The patient voiced their understanding that while these are the most common complications other less common complications are possible. They provided both their verbal and written consent to go forward with surgery. Operative Findings: Severe tricompartmental knee osteoarthritis Description of Procedure: The patient was identified in preoperative holding and the correct operative extremity was verified and marked with a marker. I reviewed the consent form with the patient at length. All of their questions were answered. The patient was given a block by anesthesia. They were then brought back to the operating room. They were transferred onto the operating room table where a general anesthetic, preoperative antibiotics, and tranexamic acid were administered by anesthesia. A tourniquet was applied to the proximal aspect of the operative extremity. The contralateral extremity was padded under the heel and secured to the operating room table with a nonsterile blue towel and tape. The ipsilateral arm was carefully draped across the patient's chest and secured with a pillow and foam. A post was applied over the lateral aspect of the ipsilateral thigh and a bolster was placed under the ipsilateral foot. I verified that the operative extremity was stable and the knee was flexed to 90. The operative extremity was then placed in a leg alston, nonsterile drapes were applied, and the extremity was prepped and draped sterilely in the standard sterile fashion. Prior to starting surgery timeout was performed identifying the correct patient, operative extremity, and procedure. The leg was then elevated, exsanguinated with an Esmarch bandage, and the tourniquet was inflated. An anterior midline incision was made sharply with a scalpel. Once I had dissected deep to the superficial fascial layer medial and lateral flaps were elevated. A medial parapatellar arthrotomy was created. Upon opening the knee joint there were diffuse arthritic changes in all 3 compartments. The anterior horn of the medial meniscus were sharply released and a medial release was perf ormed around the posterior medial corner of the knee to facilitate retractor placement. The fat pad was excised with electrocautery. Remnants of the ACL and PCL were then excised from the notch. 4 mm pins were then placed within the incision in the medial distal femur and proximal tibia. Arrays were applied to the pins and I verified they were completely tightened. The knee was then registered with the [employer] robot and manipulations in implant position were made to balance the knee and opitmize implant position. Using the Jean robotic saw all cuts were made in accordance with our plan. After all bony fragments had been removed the cuts were verified with the planar probe. The tibia was then subluxed forward and sized. The knee was brought into flexion and a lamina water taxi boat mate was placed to allow removal of the meniscal remnants both medially and laterally as well as posterior osteophytes. Local anesthetic was then infiltrated around the joint capsule. Trial implants were then placed within the knee. Range of motion and collateral ligament tension was then evaluated. Adjustments in implant size and position were then made accordingly. Once the knee was felt to be appropriately balanced the Jean pins were removed. The patella was then cut, sized, and punched. A trial patellar button was then placed. With the trial components in place, the patella tracked midline. The femur was then drilled and the trial component removed. The trial tibial component was then appropriately rotated, pinned, and prepared for the keel. All trial components were then removed from the knee. The knee was thoroughly irrigated with pulsatile lavage. Cement was prepared via vacuum mixing in a bowl on the back table. Once the cement had reached appropriate consistency, I hand pressurized cement into the tibia and gently impacted the tibial implant into place. Cement was carefully removed from around the tibial tray and the poly liner was tapped into placed, engaging the locking mechanism. The femur was then exposed and cement was hand pressurized into the cut surfaces. The femoral implant was gently tapped into place and cement was carefully removed. A wet lap sponge was used to wipe down the bearing surface of the femur and the knee was extended to further pressurize cement. With the knee extended, cement was pressurized into the cut surface of the patella and the patella button was placed and compressed with a clamp. All extruded cement was removed including from the pin sites. The knee was held in extension until the cement had fully hardened. Once the cement had hardened the knee was evaluated one final time with the final polyethylene liner in place. The knee had full extension and flexion and felt stable to varus and valgus stress throughout the arc of motion. The tourniquet was released and with the tourniquet down the patella tracked midline. All bleeders were controlled with electrocautery. The knee was then soaked for 3 minutes with a dilute Betadine soak. The knee was thoroughly irrigated using 3 L of sterile saline and pulsatile lavage. A deep drain was placed. The extensor mechanism was then reapproximated using pop off Vicryl sutures followed by a running barbed suture. The knee was then closed in layers with a 0 strata fix for the deep fascial layer, 2-0 strata fix for the superficial subcutaneous layer and Monocryl and Steri-Strips for the skin. A sterile dressing and drain sponge were applied. I verified that all instrument, sponge, and sharp counts were correct. The patient was then transferred off the operating room table, extubated, and brought to recovery having tolerated the procedure well. John Salas PA-C was required as a skilled assistant laboratory director due to the complexity of surgery for patient positioning, draping, exposure, retraction, closure of wound and application of dressing. PLAN: The patient can weight-bear as tolerated on the operative extremity. DVT prophylaxis with aspirin 81 mg twice a day based on preoperative risk stratification. Follow-up in the office in 2 weeks for wound check and x-rays of the knee including an AP and lateral.
[2024-06-25] MEDS ORDERED: diazePAM 5 MG TAB PO PRN ×2 (09:21)
[2024-06-25] MEDS ORDERED: ONDANSETRON 4 MG/2 ML VIAL IVP PRN (09:21)
[2024-06-25] MEDS ORDERED: NALOXONE 0.4 MG/ML 1 ML VIAL IV PRN (09:21)
[2024-06-25] MEDS ORDERED: TEMAZEPAM 15 MG CAP PO PRN (09:21)
[2024-06-25] MEDS ORDERED: NA PHOS,M-B/NA PHOS,DI-BA 133 ML ENEMA RECTAL PRN (09:21)
[2024-06-25] MEDS ORDERED: bisacodyL 10 MG SUPP RECTAL PRN (09:21)
[2024-06-25] MEDS ORDERED: hydrOXYzine pamoate 25 MG CAP PO PRN (09:21)
[2024-06-25] MEDS ORDERED: HYDROcodone/APAP 5-325MG 1 EACH TAB PO PRN (09:21)
[2024-06-25] MEDS ORDERED: MAGNESIUM HYDROXIDE 2,400 MG/30 ML CUP PO PRN (09:21)
--- NOTE | 2024-06-25 10:12 | P.ANPRN ---
Procedure Note - Anesthesia - Nerve Block Performed Left Adductor Canal Single Time Out Performed: Yes (0703) Date of Procedure: 06/25/24 Procedure Start Time: : Procedure Stop Time: : Location of Patient: PreOp Indication: Acute Post-Operative Pain, Requested by Surgeon Specifically requested for management of pain by DrMiguel: Anthony Alonzo Sedation Type: Sedate with meaningful contact maintained Preparation: Sterile Prep Position: Supine Catheter: None Needle Types: Pajunk Needle Gauge: 21 Ultrasound used to visualize needle placement: Yes Ultrasound used to observe medication spread: Yes Injectate: 0.5% Ropivacaine (see comment for volume) (15cc+10cc nacl pf +Decadron 4mg) Blood Aspirated: No Pain Paresthesia on Injection Noted: No Resistance on Injection: Normal Image Stored and Saved: Yes Events: Uneventful and Well Tolerated
[2024-06-25 10:14] LABS: Glucose,Whole Blood 137 mg/dL (70-110)
--- NOTE | 2024-06-25 10:20 | P.ANPRN ---
Procedure Note - Anesthesia - Nerve Block Performed Left iPack Single Time Out Performed: Yes (0703) Date of Procedure: 06/25/24 Procedure Start Time: :08 Procedure Stop Time: 07:11 Location of Patient: PreOp Indication: Acute Post-Operative Pain, Requested by Surgeon Specifically requested for management of pain by DrMiguel: Anthony Alonzo Sedation Type: Sedate with meaningful contact maintained Preparation: Sterile Prep Position: Supine Catheter: None Needle Types: Pajunk Needle Gauge: 21 Ultrasound used to visualize needle placement: Yes Ultrasound used to observe medication spread: Yes Injectate: 0.5% Ropivacaine (see comment for volume) (15cc+10cc nacl pf +Decadron 4mg) Blood Aspirated: No Pain Paresthesia on Injection Noted: No Resistance on Injection: Normal Image Stored and Saved: Yes Events: Uneventful and Well Tolerated
--- NOTE | 2024-06-25 10:39 | XR ---
EXAMINATION TYPE: XR knee limited LT DATE OF EXAM: 06/25/2024 10:30 AM INDICATION: Patient age:Male; 79 years old; Reason for study: Evaluation for Postop abnormality and alignment; PHH. pain COMPARISON: CT left knee 05/21/2024 TECHNIQUE: The Left knee(s) was examined in frontal and lateral projections. FINDINGS: Status post total knee arthroplasty changes with hardware in appropriate alignment and in tact. No evidence of fracture. Subcutaneous lucencies and lucencies within the joint consistent with surgical changes. Incidental fabella. Vascular sclerosis. Redemonstration of posterior fossa calcific ation measuring up to 1.5 cm. IMPRESSION: Status post total knee arthroplasty changes with hardware intact and appropriate alignment. No fractu res identified. [facility], , 06/25/2024 10:37 AM
[2024-06-25 11:56] LABS: Glucose,Whole Blood 158 mg/dL (70-110)
--- NOTE | 2024-06-25 14:24 | P.CONS ---
History of Present Illness - Reason for Consult Consult date: 06/25/24 Medical management - History of Present Illness History of present illness; Patient is a 79year old M with PMH of anxiety/depression, allergies urinary urgency who is presenting for elective total left knee arthroplasty secondary to worsening osteoarthritis. Patient then followed up with orthopedic surgery outpatient and had planned surgery today. Patient is now postop with no known surgical complications. Patient is sitting up in bed resting with no complaints of pain. Patient reports absence of fever, chills, weight loss, chest pain, palpitations, diaphoresis, dyspnea, cough, nausea, vomiting, constipation, diarrhea, abdominal pain, weakness, myalgia, dizziness, headache, and dysuria. Internal medicine was consulted for medical management. Initial lab workup from 05/21/2024 noted WBCs 8.44, hemoglobin 14.4, hematocrit 44.3, platelet 316; 3140, potassium 4.5, bicarb 12.2, creatinine 0.9, calcium 9.4, total bilirubin 0.7, AST 22, ALT 32, alkaline phosphatase 96 Postoperative left knee x-ray showed status post total knee arthroplasty changes with hardware intact and in appropriate alignment REVIEW OF SYSTEMS: All systems reviewed, pertinent positives and negatives noted in HPI. All other symptoms are negative. PHYSICAL EXAMINATION: Vitals reviewed GENERAL: No acute distress. Well developed, well nourished. HEENT: Pupils are round and equally reacting to light. EOMI. No scleral icterus. Normocephalic, atraumatic. No pharyngeal erythema. No thyromegaly. CARDIOVASCULAR: S1 and S2 present. No murmurs, rubs, or gallops. PULMONARY: Chest is clear to auscultation, no wheezing, rhonchi, or crackles. ABDOMEN: Soft, nontender, nondistended, normoactive bowel sounds. No palpable organomegaly. MUSCULOSKELETAL: No apparent joint swelling and deformities. EXTREMITIES: No apparent cyanosis, clubbing, or pedal edema. NEUROLOGICAL: The patient is alert and oriented x3, Gross neurological examination did not reveal any focal deficits. 5/5 strength bilateral UE and LE. SKIN: No apparent rashes. Assessment and plan Patient is a 79year old M with PMH of anxiety/depression, allergies urinary retention who is presenting for elective total left knee arthroplasty secondary to worsening osteoarthritis. Chronic Medical Conditions # Acute hypoxemic respiratory failure - Likely secondary to atelectasis postop, encourage incentive spirometer, early ambulation, up in chair when able #Anxiety/Depression -Resume home medication #History of urinary urgency and leakage -Resume home medication #Total left knee arthroplasty -Pain management and DVT prophylaxis per primary surgical team He is currently medically optimized for discharge. We will continue to follow for the duration of his stay. Thank you very much for this consult. F: IV LR 20 cc/h E: Replete as needed N: Consistent carbohydrate DVT ppx: per primary surgical team Code status: Full code Patient is stable from medical stand point Follow up CBC and BMP in AM Dictation was produced using [employer] dictation software. Please excuse any grammatical, word or spelling errors. Reg Swanson MD PGY-1 IM I saw and evaluated the patient during the castro and critical portions of this encounter, and discussed the case in detail with the resident author of this note, I agree with the Assessment and Plan, and my changes, if any, are high lighted in blue. 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 History of Any Multi-Drug Resistant Organisms: None Reported Additional Past Surgical History / Comment(s): hemorrhoidectomy, COLONOSCOPY, cataracts removed, pain procedures Past Anesthesia/Blood Transfusion Reactions: No Reported Reaction Additional Past Anesthesia/Blood Transfusion Reaction / Comm: pt adopted; no hx blood transfusion Smoking Status: Former smoker - Past Family History Mother History Unknown: Yes Family Medical History: No Reported History Additional Family Medical History / Comment(s): pt states he was adopted, parents unknown. Medications and Allergies Home Medications Medication Instructions Recorded Confirmed Type Montelukast Sodium [Singulair] 10 mg PO DAILY 04/01/19 06/21/24 History Cholecalciferol [Vitamin D3 (25 25 mcg PO DAILY 11/02/20 06/21/24 History Mcg = 1000 Iu)] Loratadine 10 mg PO QAM 11/02/20 06/21/24 History Ascorbic Acid [Vitamin C] 1,000 mg PO DAILY 06/21/24 06/21/24 History Omeprazole [PriLOSEC] 40 mg PO DAILY 06/21/24 06/21/24 History Oxybutynin Chloride [oxyBUTYnin 10 mg PO DAILY 06/21/24 06/21/24 History chloride ER] Rosuvastatin [Crestor] 20 mg PO DAILY 06/21/24 06/21/24 History Semaglutide [Wegovy] 0.25 mg SQ PACE 06/21/24 06/21/24 History Vit C/E/Zn/Coppr/Lutein/Zeaxan 1 each PO DAILY 06/21/24 06/21/24 History [Preservision Areds 2 Softgel] Vitamin E Mixed [Vitamin E] 1,000 unit PO DAILY 06/21/24 06/21/24 History buPROPion HCL [buPROPion HCL XL] 150 mg PO DAILY 06/21/24 06/21/24 History Doxycycline Monohydrate 100 mg PO BID-W/MEALS #14 cap 06/25/24 Rx Allergies Allergy/AdvReac Type Severity Reaction Status Date / Time No Known Allergies Allergy Verified 06/25/24 06:21 Physical Exam Osteopathic Statement: *. No significant issues noted on an osteopathic structural exam other than those noted in the History and Physical/Consult. Vitals: Vital Signs Temp Pulse Resp BP Pulse Ox 06/25/24 10:45 59 L 18 137/76 95 06/25/24 10:30 65 16 128/76 98 06/25/24 10:15 68 17 141/60 96 06/25/24 10:00 64 15 140/68 95 06/25/24 09:49 97.6 F 67 17 149/64 97 06/25/24 07:15 52 L 12 117/63 95 06/25/24 06:39 96.9 F L 54 L 20 130/73 96 Intake and Output 06/24/24 06/25/24 06/25/24 22:59 06:59 14:59 Intake Total 1400 Output Total 100 Balance 1300 Intake: IV 1400 Output: Estimated Blood Loss 100 Other: Weight 131.2 kg 131.2 kg Results Labs: Abnormal Lab Results - Last 24 Hours (Table) 06/25/24 Range/Units 10:12 POC Glucose (mg/dL) 137 H (70-110) mg/dL
[2024-06-25] MEDS: ceFAZolin 3 GM in SODIUM CHLORIDE 0.9% 100 ML IVPB SCH (16:36)
[2024-06-25] MEDS: SENNOSIDES-DOCUSATE SODIUM 1 EACH TAB PO SCH (20:36)
[2024-06-25] MEDS: ASPIRIN 81 MG PO SCH (20:36)
[2024-06-25] MEDS: SODIUM CHLORIDE 0.9% 1,000 ML IV SCH (23:03)
[2024-06-26 04:16] LABS: African American GFR (CKD) >90 (>60 ml/min/1.73 sqM); Anion Gap 8 mmol/L; Blood Urea Nitrogen 17 mg/dL (9-20); Calcium 9.1 mg/dL (8.4-10.2); Carbon Dioxide 22 mmol/L (22-30); Chloride 105 mmol/L (98-107); Glucose 115 mg/dL (74-99); Non-African American GFR(CKD) 84 (>60 ml/min/1.73 sqM); Potassium 4.5 mmol/L (3.5-5.1); Sodium 135 mmol/L (137-145)
[2024-06-26] MEDS: BENZOCAINE/MENTHOL LOZENG 1 EACH LOZENGE MUCOUS MEM PRN (04:28)
[2024-06-26 07:21] VITALS: BP 95/55; PULSE 68; RESP 18; TEMP 98.6
[2024-06-26] MEDS: HYDROcodone/APAP 10-325MG 1 EACH TAB PO PRN (08:10)
[2024-06-26] MEDS: ATORVASTATIN 40 MG TAB PO SCH (08:10)
[2024-06-26] MEDS: PANTOPRAZOLE 40 MG TABLET PO SCH (08:10)
[2024-06-26] MEDS: buPROPion XL 150 MG TAB.ER.24H PO SCH (08:10)
[2024-06-26] MEDS: OXYBUTYNIN 10 MG TAB.ER.24 PO SCH (08:10)
[2024-06-26] MEDS: LORATADINE 10 MG TAB PO SCH (08:10)
[2024-06-26] MEDS: MONTELUKAST 10 MG TAB PO SCH (08:10)
[2024-06-26 10:19] LABS: Basophils # (A) 0.02 X 10*3/uL (0.00-0.10); Basophils % (A) 0.1 %; Eosinophils # (A) 0 X 10*3/uL (0.04-0.35); Eosinophils % (A) 0 %; HCT 36.7 % (39.6-50.0); HGB 12.1 g/dL (13.0-17.0); Lymphocytes # (A) 0.87 X 10*3/uL (0.90-5.00); Lymphocytes % (A) 5.6 %; MCH 31.2 pg (27.0-32.0); MCV 94.6 FL (80.0-97.0); Mean Platelet Volume 9.9 FL (9.5-12.2); Monocytes # (A) 1.17 X 10*3/uL (0.20-1.00); Monocytes % (A) 7.5 %; NRBC Per 100 WBC 0 X 10*3/uL (0.00-0.01); Neutrophils # (A) 13.48 X 10*3/uL (1.80-7.70); Neutrophils % (A) 86.4 %; Platelet Count 253 X 10*3/uL (140-440); RBC 3.88 X 10*6/uL (4.40-5.60); RDW 13.2 % (11.5-14.5); WBC 15.61 X 10*3/uL (4.50-10.00)
--- NOTE | 2024-06-26 10:19 | P.DS ---
Providers Expected date of discharge: 06/26/24 Attending physician: Anthony Alonzo Consults: 06/25/24 09:21 Consult Physician Routine Consulting Provider: Radha Fortune Consult Reason/Comments: post op medical management Do you want consulting provider notified?: Yes Primary care physician: Jovanny Lucas - Discharge Diagnosis(es) (1) Primary localized osteoarthritis of left knee Current Visit: Yes Status: Acute (2) Status post total left knee replacement Current Visit: Yes Status: Acute Hospital Course: This is an 79-year-old male who was last seen with complaint of continued left knee pain. The patient has a known history of degenerative arthritis of the left knee and presents to discuss surgical options. After discussion and consideration the patient elects to proceed with total left knee arthroplasty. The patient is seen preoperatively by his primary care physician and cleared for surgery. The patient is admitted to [facility] for total left knee arthroplasty. The procedures performed without complication or sequelae. He is doing well postoperatively. Vital signs are stable at discharge. Labs are stable at discharge. the patient is ambulating well with walker with minimal assistance. The patient is discharged to home on postop day # 1 pending medical clearance. Please see orders and refer to the med rec for accurate list of medications. Patient Condition at Discharge: Good Plan - Discharge Summary Discharge Rx Participant: No New Discharge Prescriptions: New Doxycycline Monohydrate 100 mg PO BID-W/MEALS #14 cap No Action Montelukast Sodium [Singulair] 10 mg PO DAILY Loratadine 10 mg PO QAM buPROPion HCL [buPROPion HCL XL] 150 mg PO DAILY Rosuvastatin [Crestor] 20 mg PO DAILY Vit C/E/Zn/Coppr/Lutein/Zeaxan [Preservision Areds 2 Softgel] 1 each PO DAILY Ascorbic Acid [Vitamin C] 1,000 mg PO DAILY Cholecalciferol [Vitamin D3 (25 Mcg = 1000 Iu)] 25 mcg PO DAILY Vitamin E Mixed [Vitamin E] 1,000 unit PO DAILY Oxybutynin Chloride [oxyBUTYnin chloride ER] 10 mg PO DAILY Omeprazole [PriLOSEC] 40 mg PO DAILY Semaglutide [Wegovy] 0.25 mg SQ PACE Discharge Medication List Montelukast Sodium [Singulair] 10 mg PO DAILY 04/01/19 [History] Cholecalciferol [Vitamin D3 (25 Mcg = 1000 Iu)] 25 mcg PO DAILY 11/02/20 [History] Loratadine 10 mg PO QAM 11/02/20 [History] Ascorbic Acid [Vitamin C] 1,000 mg PO DAILY 06/21/24 [History] Omeprazole [PriLOSEC] 40 mg PO DAILY 06/21/24 [History] Oxybutynin Chloride [oxyBUTYnin chloride ER] 10 mg PO DAILY 06/21/24 [History] Rosuvastatin [Crestor] 20 mg PO DAILY 06/21/24 [History] Semaglutide [Wegovy] 0.25 mg SQ PACE 06/21/24 [History] Vit C/E/Zn/Coppr/Lutein/Zeaxan [Preservision Areds 2 Softgel] 1 each PO DAILY 06/21/24 [History] Vitamin E Mixed [Vitamin E] 1,000 unit PO DAILY 06/21/24 [History] buPROPion HCL [buPROPion HCL XL] 150 mg PO DAILY 06/21/24 [History] Doxycycline Monohydrate 100 mg PO BID-W/MEALS #14 cap 06/25/24 [Rx] Follow up Appointment(s)/Referral(s): Anthony Alonzo MD [Medical Doctor] - 2 Weeks Activity/Diet/Wound Care/Special Instructions: Patient scheduled to go to for Outpatient Physical Therapy on discharge 1. Weight-bear as tolerated on your operative extremity unless instructed otherwise. Use a walker or other assistive device to ambulate. 2. Leave surgical dressing in place. If your dressing becomes saturated with blood, there is drainage, or the dressing becomes loose please contact the office. 3. It is okay to shower with your surgical dressing, but do not submerge in water (no hot tubs, bath's, swimming etc.) 4. Make sure to take her blood clot prevention medication as prescribed (aspirin, Eliquis, Xarelto, and Plavix are commonly prescribed medications for blood clot prevention) 5. While taking [place] or Percocet for pain make sure you're taking a stool softener (Colace) and drink lots of water. 6. Keep all follow-up appointments as scheduled. You will usually be seen in 1-2 weeks following surgery. 7. Please contact the office with any questions or concerns [phone] Discharge Disposition: HOME WITH HOME HEALTH SERVICES
--- NOTE | 2024-06-26 13:04 | P.PN ---
Subjective Progress Note Date: 06/26/24 Patient is a 79year old M with PMH of anxiety/depression, allergies urinary urgency who is presenting for elective total left knee arthroplasty secondary to worsening osteoarthritis. Patient then followed up with orthopedic surgery outpatient and had planned surgery today. Patient is now postop with no known surgical complications. Patient is sitting up in bed resting with no complaints of pain. Patient reports absence of fever, chills, weight loss, chest pain, palpitations, diaphoresis, dyspnea, cough, nausea, vomiting, constipation, diarrhea, abdominal pain, weakness, myalgia, dizziness, headache, and dysuria. Internal medicine was consulted for medical management. 06/26 - He is seen and examined at bedside this morning. No acute events overnight, no acute complaints this morning. REVIEW OF SYSTEMS: Pertinent positives and negatives noted in HPI. Physical Exam: Vitals reviewed GENERAL: No acute distress. Well developed, well nourished. HEENT: Pupils are round and equally reacting to light. EOMI. No scleral icterus. Normocephalic, atraumatic. No pharyngeal erythema. No thyromegaly. CARDIOVASCULAR: S1 and S2 present. No murmurs, rubs, or gallops. PULMONARY: Chest is clear to auscultation, no wheezing, rhonchi, or crackles. ABDOMEN: Soft, nontender, nondistended, normoactive bowel sounds. No palpable organomegaly. MUSCULOSKELETAL: No apparent joint swelling and deformities. EXTREMITIES: No apparent cyanosis, clubbing, or pedal edema. Vertical bandage over the left knee, without noted erythema or drainage; clean and intact. NEUROLOGICAL: The patient is alert and oriented x3, Gross neurological examination did not reveal any focal deficits. 5/5 strength bilateral UE and LE. SKIN: No apparent rashes. Data Received Today: Labs: Sodium 135, potassium 4.5, bicarb 22, anion gap 8, BUN 17, creatinine 0.82, calcium 9 point Imagining: No new imaging Assessment and plan Patient is a 79year old M with PMH of anxiety/depression, allergies urinary retention who is presenting for elective total left knee arthroplasty secondary to worsening osteoarthritis. Chronic medical conditions #Acute hypoxic respiratory failure, resolved -Likely secondary to atelectasis postop, encourage incentive spirometer, early ambulation, up in chair when able #Anxiety/Depression -Resume home medication #History of urinary urgency and leakage -Resume home medication #Total left knee arthroplasty -Pain management and DVT prophylaxis per primary surgical team He is currently medically optimized for discharge. We will continue to follow for the duration of his stay. Thank you very much for this consult. F: IV LR 20 cc/h E: Replete as needed N: Consistent carbohydrate DVT ppx: Per primary surgical team Code status: Full code Anticipated discharge place: Home Anticipated discharge time: Todaytomorrow Dictation was produced using [employer] dictation software. please excuse any gramm atical, word or spelling errors. Reg Swanson MD PGY-1 IM I saw and evaluated the patient during the castro and critical portions of this encounter, and discussed the case in detail with the resident author of this note, I agree with the Assessment and Plan, and my changes, if any, are highlighted in blue. Objective - Vital Signs Vital signs: Vital Signs Temp 98.6 F 06/26/24 06:48 Pulse 68 06/26/24 06:48 Resp 18 06/26/24 06:48 BP 95/55 06/26/24 06:48 Pulse Ox 95 06/26/24 06:48 FiO2 Intake & Output 06/25/24 06/26/24 06/26/24 18:59 06:59 18:59 Intake Total 1400 Output Total 100 2550 Balance 1300 -2550 Weight 131.2 kg Intake: IV 1400 Output: Urine 2550 Straight 1600 Estimated Blood Loss 100 Other: # Voids 0 - Labs CBC & Chem 7: 06/26/24 02:54 06/26/24 02:54 Labs: Abnormal Lab Results - Last 24 Hours (Table) 06/25/24 06/25/24 06/26/24 Range/Units 10:12 11:55 02:54 Sodium 135 L (137-145) mmol/L Glucose 115 H (74-99) mg/dL POC Glucose (mg/dL) 137 H 158 H (70-110) mg/dL
== END 2024-06-26 12:09 | disposition home health service (06) ==
LOC: OR 05:47 → 4SSUR 09:42 → OR 06-26 12:09
PROVIDERS: ATTEND Orthopaedic Surgery
DX: M17.12 Unilateral primary osteoarthritis, left knee (principal); E11.9 Type 2 diabetes mellitus without complications; E78.5 Hyperlipidemia, unspecified; F32.A Depression, unspecified; F41.9 Anxiety disorder, unspecified; G47.33 Obstructive sleep apnea (adult) (pediatric); G89.18 Other acute postprocedural pain; J96.01 Acute respiratory failure with hypoxia; N40.0 Benign prostatic hyperplasia without lower urinary tract symptoms; Z79.899 Other long term (current) drug therapy; Z87.891 Personal history of nicotine dependence; Z79.84 Long term (current) use of oral hypoglycemic drugs; Z99.89 Dependence on other enabling machines and devices
CPT/HCPCS: 0055T; 27447; 64447; 64473; 80048; 85025